=== PATIENT | female | born 1995 | race Caucasian/White ===

== ENCOUNTER 2018-12-24 07:38 | Emergency (ER) | payer OTHER ==
--- OUTSIDE RECORDS SUMMARY | 2018-12-24 07:41 | XMS REPORT | Continuity of Care Document ---
:1995 Author Organization [facility] Care Team Providers Name Role Phone MD Ijeoma, Suzanne Unavailable Unavailable Insurance Providers Payer name Policy type / Policy ID Covered libertarian ID Policy Eddy Coverage type AETNA - UPS - NAP - CHOICE (POS II) AETNA - UPS - NAP - CHOICE (POS II) AETNA - UPS - NAP - CHOICE (POS II) AETNA - UPS - NAP - CHOICE (POS II) [facility] - CHOICE PLUS AETNA - UPS - NAP - CHOICE (POS II) AETNA - UPS - NAP - CHOICE (POS II) AETNA - UPS - NAP - CHOICE (POS II) AETNA - UPS - NAP - CHOICE (POS II) AETNA - UPS - NAP - CHOICE (POS II) AETNA - UPS - NAP - CHOICE (POS II) AETNA - UPS - NAP - CHOICE (POS II) AETNA - UPS - NAP - CHOICE (POS II) AETNA - UPS - NAP - CHOICE (POS II) AETNA - UPS - NAP - CHOICE (POS II) AETNA - UPS - NAP - CHOICE (POS II) AETNA - UPS - NAP - CHOICE (POS II) AETNA - UPS - NAP - CHOICE (POS II) [facility] - CHOICE PLUS Encounters Encounter Performer Location Date Lab Report Suzanne Raphael MD [facility] Jun 27, 2014 [place] Allergies, Adverse Reactions, Alerts Type Substance Reaction Status Drug allergy ANTIFLAMATORY rash body Active Problems Problem Effective Dates Problem Status ENCOUNTER FOR REMOVAL OF SUTURES September 08, 2012 Inactive PHARYNGITIS Mar 30, 2013 Inactive SINUSITIS, ACUTE Mar 30, 2013 Inactive REACTIVE AIRWAY DISEASE Mar 30, 2013 Inactive VACCINE AGAINST INFLUENZA Apr 06, 2013 Inactive ROUTINE GENERAL MEDICAL EXAM@HEALTH CARE FACL May 04, 2013 Inactive ALLERGIC RHINITIS May 04, 2013 Active VAGINITIS Dec 12, 2013 Inactive ACUTE UPPER RESPIRATORY INFECTIONS OF OTHER MULTIPLE Dec 12, 2013 Inactive SITES SINUSITIS Jun 27, 2014 Active ANXIETY Jun 27, 2014 Active PANIC DISORDER Jun 27, 2014 Active Procedures Date Description Comments September 08, 2012 smoking status never smoker Mar 30, 2013 smoking status never smoker August 23, 2012 vaginal Pap smear results Normal Dec 12, 2013 smoking status Never smoker Jan 11, 2014 smoking status Former smoker Jun 27, 2014 smoking status Former smoker Medications Medication Instructions Start Date Status ZITHROMAX Z-PAOLO 250 MG TABS 2 today, then 1 daily for 4 Mar 30, 2013 Inactive days with food MEDROL (PAOLO) 4 MG TABS take per package instructions Mar 30, 2013 Inactive with food AVELOX 400 MG TABS 1 PO QD x 10 days Apr 06, 2013 Inactive ZUTRIPRO 60-4-5 MG/5ML SOLN 5 ml every 6 hr prn cough/ Apr 06, 2013 Inactive sinus REZIRA 60-5 MG/5ML SOLN 5 ml bid prn Apr 06, 2013 Inactive AZITHROMYCIN 250 MG TABS 2 tablets daily for 1 day, then Dec 12, 2013 Inactive 1 tablet daily for 4 days DIFLUCAN TAB 150MG 1 tablet daily Dec 12, 2013 Inactive SYMBICORT 160-4.5 MCG/ACT AERO 2 puffs inhaled bid - rinse Apr 06, 2013 Inactive mouth after use PROVENTIL HFA 108 (90 BASE) 2 puffs every 6 hours for 3 Mar 30, 2013 Inactive MCG/ACT AERS days, then as needed for shortness of breath AZITHROMYCIN 250 MG TABS 2 tablets daily for 1 day, then Jan 11, 2014 Inactive 1 tablet daily for 4 days BROMFED DM 30-2-10 MG/5ML SYRP 2 teaspoon three times a day as Jan 11, 2014 Inactive needed for cough AUGMENTIN 875-125 MG TABS 1 tablet twice daily for 10 Jun 27, 2014 Active days BROMFED DM 30-2-10 MG/5ML SYRP 1 teaspoon (5ml) three times a Jun 27, 2014 Active day as needed for cough BUSPIRONE HCL 10 MG TABS 1 tablet two times a day Jun 27, 2014 Active CLONAZEPAM 0.5 MG TABS 1 tablet every 8 hours as Jun 27, 2014 Active needed for severe anxiety Immunizations Vaccine Date Status hepatitis B vaccine #1 given 1993 completed hepatitis B vaccine #2 given 1993 completed hepatitis B vaccine #3 Mar 16, 1994 completed DPT immunization #1 September 21, 1994 completed DPT immunization #2 September 18, 1997 completed Hemophilus influenza B immunization #1 1993 completed Hemophilus influenza B immunization #2 Jan 12, 1994 completed Hemophilus influenza B immunization #3 Mar 16, 1994 completed Hemophilus influenza B immunization #4 September 21, 1994 completed oral polio vaccine (OPV) #1 1993 completed oral polio vaccine (OPV) #2 Jan 12, 1994 completed oral polio vaccine (OPV) #3 Mar 16, 1994 completed oral polio vaccine (OPV) #4 September 18, 1997 completed MMR (measles, mumps, rubella) virus immunization #1 September 21, 1994 completed MMR (measles, mumps, rubella) virus immunization #2 September 18, 1997 completed TB-PPD (tuberculin purified protein derivative), intradermal May 04, 2013 completed administration Vital Signs Date Description Test Result September 08, 2012 weight E&M - 3141-9 WEIGHT 107 lb September 08, 2012 height E&M - 8302-2 HEIGHT 60.25 in September 08, 2012 temperature E&M TEMPERATURE 97.8 deg f September 08, 2012 pulse rate E&M - 8867-4 PULSE RATE 68 /min September 08, 2012 blood pressure, systolic - 8480-6 BP SYSTOLIC 112 mm Hg September 08, 2012 blood pressure, diastolic - 8462-4 BP DIASTOLIC 62 mm Hg Mar 30, 2013 height E&M - 8302-2 HEIGHT 60 in Mar 30, 2013 weight E&M - 3141-9 WEIGHT 109 lb Mar 30, 2013 temperature E&M TEMPERATURE 97.8 deg f Mar 30, 2013 respiratory rate E&M - 9279-1 RESP RATE 18 /min Mar 30, 2013 pulse rate E&M - 8867-4 PULSE RATE 72 /min Mar 30, 2013 blood pressure, systolic - 8480-6 BP SYSTOLIC 134 mm Hg Mar 30, 2013 blood pressure, diastolic - 8462-4 BP DIASTOLIC 65 mm Hg Apr 06, 2013 weight E&M - 3141-9 WEIGHT 111 lb Apr 06, 2013 respiratory rate E&M - 9279-1 RESP RATE 18 /min Apr 06, 2013 pulse rate E&M - 8867-4 PULSE RATE 86 /min Apr 06, 2013 blood pressure, systolic - 8480-6 BP SYSTOLIC 120 mm Hg Apr 06, 2013 blood pressure, diastolic - 8462-4 BP DIASTOLIC 69 mm Hg Apr 06, 2013 temperature E&M TEMPERATURE 97.7 deg f May 04, 2013 weight E&M - 3141-9 WEIGHT 110 lb May 04, 2013 temperature E&M TEMPERATURE 97.8 deg f May 04, 2013 blood pressure, systolic - 8480-6 BP SYSTOLIC 126 mm Hg May 04, 2013 blood pressure, diastolic - 8462-4 BP DIASTOLIC 67 mm Hg May 04, 2013 pulse rate E&M - 8867-4 PULSE RATE 83 /min May 31, 2013 weight E&M - 3141-9 WEIGHT 112 lb May 31, 2013 temperature E&M TEMPERATURE 97.7 deg f May 31, 2013 blood pressure, systolic - 8480-6 BP SYSTOLIC 115 mm Hg May 31, 2013 blood pressure, diastolic - 8462-4 BP DIASTOLIC 55 mm Hg May 31, 2013 pulse rate E&M - 8867-4 PULSE RATE 77 /min Dec 12, 2013 weight E&M - 3141-9 WEIGHT 114 lb Dec 12, 2013 height E&M - 8302-2 HEIGHT 59 in Dec 12, 2013 blood pressure, systolic - 8480-6 BP SYSTOLIC 140 mm Hg Dec 12, 2013 blood pressure, diastolic - 8462-4 BP DIASTOLIC 66 mm Hg Dec 12, 2013 pulse rate, standing PULSE STAND 74 /min Jan 11, 2014 respiratory rate E&M - 9279-1 RESP RATE 12 /min Jan 11, 2014 weight E&M - 3141-9 WEIGHT 115 lb Jan 11, 2014 temperature E&M TEMPERATURE 98.0 deg f Jan 11, 2014 height E&M - 8302-2 HEIGHT 60 in Jan 11, 2014 blood pressure, systolic - 8480-6 BP SYSTOLIC 120 mm Hg Jan 11, 2014 blood pressure, diastolic - 8462-4 BP DIASTOLIC 75 mm Hg Jan 11, 2014 pulse rate E&M - 8867-4 PULSE RATE 66 /min Jun 27, 2014 height E&M - 8302-2 HEIGHT 60 in Jun 27, 2014 weight E&M - 3141-9 WEIGHT 119.31 lb Jun 27, 2014 temperature E&M TEMPERATURE 98.1 deg f Jun 27, 2014 pulse rate E&M - 8867-4 PULSE RATE 101 /min Jun 27, 2014 blood pressure, systolic - 8480-6 BP SYSTOLIC 136 mm Hg Jun 27, 2014 blood pressure, diastolic - 8462-4 BP DIASTOLIC 69 mm Hg Results Date Description Test Name Value Reference Interpretation Status Jun 27, hemoglobin, blood HGB 13.2 g/dL 12.0-16.0 2014Jun 27, hematocrit, blood HCT 39.9 % 36.0-48.0 2014Jun 27, platelet count PLATELETS 322 K/CMM 475-967 2174 /mm3 Jun 27, thyroid TSH 0.926 uIU/mL 0.360-3.740 2014 stimulating hormone, serum August 23, vaginal Pap smear PAP SMEAR Normal null 2012 results
--- OUTSIDE RECORDS SUMMARY | 2018-12-24 07:41 | XMS REPORT | Continuity of Care Document ---
:1995 Author Organization [facility] Care Team Providers Name Role Phone MD Ijeoma, Suzanne Unavailable Unavailable Insurance Providers Payer name Policy type / Policy ID Covered alliance party ID Policy Eddy Coverage type AETNA - [place] - NAP - CHOICE (POS II) AETNA - [place] - NAP - CHOICE (POS II) AETNA - UPS - NAP - CHOICE (POS II) AETNA - UPS - NAP - CHOICE (POS II) [facility] - CHOICE PLUS AETNA - UPS [...] UPS - NAP - CHOICE (POS II) [facility] - CHOICE PLUS Encounters Encounter Performer Location Date Office Visit Suzanne Raphael MD [facility] Jun [place] Allergies, Adverse Reactions, Alerts Type Substance Reaction [...] 2014Jun 27, platelet count PLATELETS 322 K/CMM 570-151 8915 /mm3 Jun 27, thyroid TSH 0.926 uIU/mL 0.360-3.740 2014 stimulating hormone, serum August 23, vaginal Pap smear PAP SMEAR Normal null 2012 results
--- OUTSIDE RECORDS SUMMARY | 2018-12-24 07:41 | XMS REPORT | Continuity of Care Document ---
:1995 Author Organization [facility] Care Team Providers Name Role Phone MD Ijeoma, Suzanne Unavailable Unavailable Insurance Providers Payer name Policy type / Policy ID Covered constitution party ID Policy Eddy Coverage type AETNA - UPS - NAP - CHOICE (POS II) AETNA - [place] - NAP - CHOICE (POS II) AETNA - UPS - NAP - CHOICE (POS II) AETNA - [place] - NAP - CHOICE (POS II) [facility] - CHOICE PLUS AETNA - UPS [...] UPS - NAP - CHOICE (POS II) [facility] - CHOICE PLUS Encounters Encounter Performer Location Date Office Visit Suzanne Raphael MD [facility] Jul [place] Allergies, Adverse Reactions, Alerts Type Substance Reaction [...] Jun 27, 2014 smoking status Former smoker Jul 26, 2014 smoking status Former smoker Medications Medication [...] twice daily for 10 Jun 27, 2014 Inactive days BROMFED DM 30-2-10 MG/5ML SYRP 1 teaspoon (5ml) three times a Jun 27, 2014 Inactive day as needed for cough CLONAZEPAM 0.5 MG TABS 1 tablet every 8 hours as Jun 27, 2014 Active needed for severe anxiety BUSPIRONE HCL 10 MG TABS 1/2 a tab daily Jun 27, 2014 Active PAXIL 10 MG TABS 1 tablet daily Jul 26, 2014 Active Immunizations Vaccine Date Status hepatitis B vaccine [...] - 8462-4 BP DIASTOLIC 69 mm Hg Jul 26, 2014 height E&M - 8302-2 HEIGHT 60 in Jul 26, 2014 weight E&M - 3141-9 WEIGHT 117.44 lb Jul 26, 2014 temperature E&M TEMPERATURE 98.2 deg f Jul 26, 2014 pulse rate E&M - 8867-4 PULSE RATE 77 /min Jul 26, 2014 blood pressure, systolic - 8480-6 BP SYSTOLIC 132 mm Hg Jul 26, 2014 blood pressure, diastolic - 8462-4 BP DIASTOLIC 86 mm Hg Results Date Description Test Name Value Reference Interpretation Status Jun 27, hemoglobin, blood HGB 13.2 g/dL 12.0-16.0 2014Jun 27, hematocrit, blood HCT 39.9 % 36.0-48.0 2014Jun 27, platelet count PLATELETS 322 K/CMM 481-151 2261 /mm3 Jun 27, thyroid TSH 0.926 uIU/mL 0.360-3.740 2014 stimulating hormone, serum August 23, vaginal Pap smear PAP SMEAR Normal null 2012 results
--- OUTSIDE RECORDS SUMMARY | 2018-12-24 07:41 | XMS REPORT | Continuity of Care Document ---
:1995 Author Organization [facility] Care Team Providers Name Role Phone [facility] Unavailable Unavailable Problems Problem Status Onset Classification Date Comments Source Date Reported SINUSITIS Inactive Condition 10/07/2014 Medical 5 Group ANXIETY Active Condition 10/07/2014 Medical 5 Group PANIC DISORDER Active Condition 10/07/2014 Medical 5 Group VAGINITIS Inactive Condition 10/07/2014 Medical 4 Group ACUTE UPPER Inactive Condition 10/07/2014 Medical RESPIRATORY 4 Group INFECTIONS OF OTHER MULTIPLE SITES ROUTINE GENERAL Inactive Condition 10/07/2014 Medical MEDICAL 4 Group [email or web address]@[email or web address] CARE FACL ALLERGIC Active Condition 10/07/2014 Medical RHINITIS 4 Group VACCINE AGAINST Inactive Condition 10/07/2014 Medical INFLUENZA 3 Group PHARYNGITIS Inactive Condition 10/07/2014 Medical 3 Group SINUSITIS, Inactive Condition 10/07/2014 Medical ACUTE 3 Group REACTIVE AIRWAY Inactive Condition 10/07/2014 Medical DISEASE 3 Group ENCOUNTER FOR Inactive Condition 10/07/2014 Medical REMOVAL OF 3 Group SUTURES Medications Medication Details Route Status Patient Ordering Order Source Instructions Provider Date LEXAPRO 5 MG one to 2 Active TABS tablets daily 015 Medical Group PAXIL 10 MG 1 tablet daily No TABS Longer 015 Medical Active Group AUGMENTIN 1 tablet twice No 875-125 MG TABS daily for 10 Longer 015 Medical days Active Group BROMFED DM 1 teaspoon No 30-2-10 MG/5ML (5ml) three Longer 015 Medical SYRP times a day as Active Group needed for cough BUSPIRONE HCL 1/2 a tab daily No 10 MG TABS Longer 015 Medical Active Group CLONAZEPAM 0.5 1 tablet every Active MH MG TABS 8 hours as 015 Medical needed for Group severe anxiety AZITHROMYCIN 2 tablets daily No MH 250 MG TABS for 1 day, then Longer 014 Medical 1 tablet daily Active Group for 4 days BROMFED DM 2 teaspoon No MH 30-2-10 MG/5ML three times a Longer 014 Medical SYRP day as needed Active Group for cough AZITHROMYCIN 2 tablets daily No MH 250 MG TABS for 1 day, then Longer 014 Medical 1 tablet daily Active Group for 4 days DIFLUCAN TAB 1 tablet daily No MH 150MG Longer 014 Medical Active Group AVELOX 400 MG 1 PO QD x 10 No MH TABS days Longer 013 Medical Active Group ZUTRIPRO 60-4-5 5 ml every 6 hr No MH MG/5ML SOLN prn cough/ Longer 013 Medical sinus Active Group REZIRA 60-5 5 ml bid prn No MH MG/5ML SOLN Longer 013 Medical Active Group SYMBICORT 2 puffs No MH 160-4.5 MCG/ACT inhaled bid - Longer 013 Medical AERO rinse mouth Active Group after use ZITHROMAX Z-PAOLO 2 today, then 1 No MH 250 MG TABS daily for 4 Longer 013 Medical days with food Active Group MEDROL (PAOLO) 4 take per No MH MG TABS package Longer 013 Medical instructions Active Group with food PROVENTIL HFA 2 puffs every 6 No MH 108 (90 BASE) hours for 3 Longer 013 Medical MCG/ACT AERS days, then as Active Group needed for shortness of breath MEDROL (PAOLO) 4 take per No MH MG TABS package Longer 013 Medical instructions Active Group with food Allergies, Adverse Reactions, Alerts Substance Category Reaction Severity Reaction Status Date Comments Source type Reported ANTIFLAMATORY Drug ANTIFLAMATOR allergy Y 3 Medical Group Immunizations Immunization Date Given Site Status Last Comments Source Updated TB-PPD (tuberculin 05/04/2013 completed Medical purified protein Group derivative), intradermal administration TB PPD (tuberculin 05/04/2013 completed Medical purified protein Group derivative), intradermal administration DPT immunization #2 09/18/1997 completed Medical Group oral polio vaccine 09/18/1997 completed Medical (OPV) #4 Group MMR (measles, 09/18/1997 completed Medical mumps, rubella) Group virus immunization #2 MMR virus 09/18/1997 completed Medical immunization #2 Group DPT immunization #1 09/21/1994 completed Medical Group Hemophilus 09/21/1994 completed Medical influenza B Group immunization #4 MMR (measles, 09/21/1994 completed Medical mumps, rubella) Group virus immunization #1 MMR virus 09/21/1994 completed Medical immunization #1 Group hepatitis B vaccine 03/16/1994 completed Medical #3 Group Hemophilus 03/16/1994 completed Medical influenza B Group immunization #3 oral polio vaccine 03/16/1994 completed Medical (OPV) #3 Group Hemophilus 01/12/1994 completed Medical influenza B Group immunization #2 oral polio vaccine 01/12/1994 completed Medical (OPV) #2 Group hepatitis B vaccine 1993 completed Medical #2 given Group Hemophilus 1993 completed Medical influenza B Group immunization #1 oral polio vaccine 1993 completed Medical (OPV) #1 Group hepatitis B vaccine 1993 completed Medical #2 Group hepatitis B vaccine 1993 completed Medical #1 given Group hepatitis B vaccine 1993 completed Medical #1 Group Results Order Name Results Value Reference Date Interpretation Comments Source Range Chemistry TSH 0.926 0.360 - 3.740 2014 Medical [facility] Hematology HGB 13.2 12.0 - 16.0 2014 Medical [facility] Hematology HCT 39.9 36.0 - 48.0 2014 Medical [facility] Hematology PLATELETS 322 133 - 450 K/CM 2014 Medical Group [employer] PAP SMEAR Normal 2012 Medical Group [employer] PAP SMEAR Normal 2012 Medical [facility] Pathology PAP SMEAR Normal 2012 Medical [facility] Pathology Reports No Data Provided for This Section Diagnostic Reports No Data Provided for This Section Consultation Notes No Data Provided for This Section Discharge Summaries No Data Provided for This Section History and Physicals No Data Provided for This Section Vital Signs Vital Sign Value Date Comments Source Height 60 10/07/2014 Medical [facility] Weight 121.50 10/07/2014 [facility] Temperature Oral (F) 98.5 F 10/07/2014 Medical Group Respitory Rate 16 10/07/2014 Medical Group Heart Rate 80 10/07/2014 [facility] Systolic (mm Hg) 122 10/07/2014 [facility] Diastolic (mm Hg) 82 10/07/2014 Medical Group Height 60 07/26/2014 [facility] Weight 117.44 07/26/2014 [facility] Temperature Oral (F) 98.2 F 07/26/2014 Medical Group Heart Rate 77 07/26/2014 [facility] Systolic (mm Hg) 132 07/26/2014 [facility] Diastolic (mm Hg) 86 07/26/2014 [facility] Height 60 06/27/2014 Medical Group Weight 119.31 06/27/2014 [facility] Temperature Oral (F) 98.1 F 06/27/2014 Medical Group Heart Rate 101 06/27/2014 [facility] Systolic (mm Hg) 136 06/27/2014 [facility] Diastolic (mm Hg) 69 06/27/2014 Medical Group Respitory Rate 12 01/11/2014 Medical Group Weight 115 01/11/2014 Medical Group Temperature Oral (F) 98.0 F 01/11/2014 Medical Group Height 60 01/11/2014 [facility] Systolic (mm Hg) 120 01/11/2014 [facility] Diastolic (mm Hg) 75 01/11/2014 Medical Group Heart Rate 66 01/11/2014 Medical Group Weight 114 12/12/2013 Medical Group Height 59 12/12/2013 [facility] Systolic (mm Hg) 140 12/12/2013 [facility] Diastolic (mm Hg) 66 12/12/2013 Medical Group Heart Rate 74 12/12/2013 Medical Group Weight 112 05/31/2013 Medical Group Temperature Oral (F) 97.7 F 05/31/2013 [facility] Systolic (mm Hg) 115 05/31/2013 Medical Group Diastolic (mm Hg) 55 05/31/2013 Medical Group Heart Rate 77 05/31/2013 Medical Group Weight 110 05/04/2013 Medical Group Temperature Oral (F) 97.8 F 05/04/2013 Medical Group Systolic (mm Hg) 126 05/04/2013 Medical Group Diastolic (mm Hg) 67 05/04/2013 Medical Group Heart Rate 83 05/04/2013 Medical Group Weight 111 04/06/2013 Medical Group Respitory Rate 18 04/06/2013 Medical Group Heart Rate 86 04/06/2013 Medical Group Systolic (mm Hg) 120 04/06/2013 Medical Group Diastolic (mm Hg) 69 04/06/2013 Medical Group Temperature Oral (F) 97.7 F 04/06/2013 Medical Group Height 60 03/30/2013 Medical Group Weight 109 03/30/2013 Medical Group Temperature Oral (F) 97.8 F 03/30/2013 Medical Group Respitory Rate 18 03/30/2013 Medical Group Heart Rate 72 03/30/2013 Medical Group Systolic (mm Hg) 134 03/30/2013 Medical Group Diastolic (mm Hg) 65 03/30/2013 Medical Group Weight 107 09/08/2012 Medical Group Height 60.25 09/08/2012 Medical Group Temperature Oral (F) 97.8 F 09/08/2012 Medical Group Heart Rate 68 09/08/2012 Medical Group Systolic (mm Hg) 112 09/08/2012 Medical Group Diastolic (mm Hg) 62 09/08/2012 Medical Group Encounters Location Location Encounter Encounter Reason Attending ADM DC Status Source Details Type Number For Provider Date Date Visit [facility] [id number] [facility] 12/12 12/12 [facility] [place] Visit 0 Medical Medical MEDICAL TRANSCRIPTION SUPERVISOR Group Group [facility] Office [id number] [facility] 01/11 01/11 MH [place] Visit 0 Medical Medical MEDICAL TRANSCRIPTION SUPERVISOR Group Group [facility] Office [id number] [facility] 06/27 06/27 MH [place] Visit 0 [facility] Medical MD [place] [facility] Lab [facility] [id number] [facility] 06/27 [facility] [place] 0 [facility] Medical MD [place] [facility] Office [id number] [facility] 07/26 07/26 MH [place] Visit 0 [facility] Medical MD [place] [facility] Office [id number] [place] 10/07 10/07 [facility] [place] Visit 0 [facility] MD [facility] [place] Procedures Procedure Code Date Perfomer Comments Source vaginal Pap smear 48398 08/23/2012 Normal MH Medical results Group Assessment and Plan No Data Provided for This Section Plan of Care No Data Provided for This Section Social History No Data Provided for This Section Family History No Data Provided for This Section Advance Directives No Data Provided for This Section Functional Status No Data Provided for This Section
--- OUTSIDE RECORDS SUMMARY | 2018-12-24 07:41 | XMS REPORT | Continuity of Care Document ---
:1995 Author Organization [facility] Care Team Providers Name Role Phone ABDIRAHMAN John LaTanya Unavailable Unavailable Insurance Providers Payer name Policy type / Policy ID Covered republican ID Policy Eddy Coverage type AETNA - [place] - NAP - CHOICE (POS II) AETNA - [place] - NAP - CHOICE (POS II) AETNA - [place] - NAP - CHOICE (POS II) AETNA - [place] - NAP - CHOICE (POS II) [facility] - CHOICE PLUS AETNA - UPS - NAP - CHOICE (POS II) AETNA - UPS - NAP - CHOICE (POS II) AETNA - [place] - NAP - CHOICE (POS II) AETNA - [place] - NAP - CHOICE (POS II) AETNA - UPS - NAP - CHOICE (POS II) AETNA - [place] - NAP - CHOICE (POS II) Encounters Encounter Performer Location Date Office Visit Ravi John APRN [facility] Dec 12, 2013 [place] Allergies, Adverse Reactions, Alerts Type Substance Reaction Status Drug allergy ANTIFLAMATORY rash body Active Problems Problem Effective Dates Problem Status ENCOUNTER FOR REMOVAL OF SUTURES September 08, 2012 Inactive PHARYNGITIS Mar 30, 2013 Inactive SINUSITIS, ACUTE Mar 30, 2013 Active REACTIVE AIRWAY DISEASE Mar 30, 2013 Active VACCINE AGAINST INFLUENZA Apr 06, 2013 Active ROUTINE GENERAL MEDICAL EXAM@HEALTH CARE FACL May 04, 2013 Active ALLERGIC RHINITIS May 04, 2013 Active VAGINITIS Dec 12, 2013 Active ACUTE UPPER RESPIRATORY INFECTIONS OF OTHER MULTIPLE Dec 12, 2013 Active SITES Procedures Date Description Comments September 08, 2012 smoking status never smoker Mar 30, 2013 smoking status never smoker August 23, 2012 vaginal Pap smear results Normal Dec 12, 2013 smoking status Never smoker Medications Medication Instructions Start Date Status ZITHROMAX Z-PAOLO 250 MG TABS 2 today, then 1 daily for 4 Mar 30, 2013 Inactive days with food MEDROL (PAOLO) 4 MG TABS take per package instructions Mar 30, 2013 Inactive with food SYMBICORT 160-4.5 MCG/ACT AERO 2 puffs inhaled bid - rinse Apr 06, 2013 Active mouth after use AVELOX 400 MG TABS 1 PO QD x 10 days Apr 06, 2013 Inactive ZUTRIPRO 60-4-5 MG/5ML SOLN 5 ml every 6 hr prn cough/ Apr 06, 2013 Inactive sinus REZIRA 60-5 MG/5ML SOLN 5 ml bid prn Apr 06, 2013 Inactive AZITHROMYCIN 250 MG TABS 2 tablets daily for 1 day, then Dec 12, 2013 Active 1 tablet daily for 4 days DIFLUCAN TAB 150MG 1 tablet daily Dec 12, 2013 Active PROVENTIL HFA 108 (90 BASE) 2 puffs every 6 hours for 3 Mar 30, 2013 Active MCG/ACT AERS days, then as needed for shortness of breath Immunizations Vaccine Date Status hepatitis B vaccine #1 1993 completed hepatitis B vaccine #2 1993 completed hepatitis B vaccine #3 Mar [...] (OPV) #4 September 18, 1997 completed MMR virus immunization #1 September 21, 1994 completed MMR virus immunization #2 September 18, 1997 completed TB PPD (tuberculin purified protein derivative), intradermal May 04, 2013 completed administration Vital Signs Date Description Test Result September 08, 2012 weight E&M WEIGHT 107 lb September 08, 2012 height E&M HEIGHT 60.25 in September 08, 2012 temperature E&M TEMPERATURE 97.8 deg f September 08, 2012 pulse rate E&M PULSE RATE 68 /min September 08, 2012 blood pressure, systolic BP SYSTOLIC 112 mm Hg September 08, 2012 blood pressure, diastolic BP DIASTOLIC 62 mm Hg Mar 30, 2013 height E&M HEIGHT 60 in Mar 30, 2013 weight E&M WEIGHT 109 lb Mar 30, 2013 temperature E&M TEMPERATURE 97.8 deg f Mar 30, 2013 respiratory rate E&M RESP RATE 18 /min Mar 30, 2013 pulse rate E&M PULSE RATE 72 /min Mar 30, 2013 blood pressure, systolic BP SYSTOLIC 134 mm Hg Mar 30, 2013 blood pressure, diastolic BP DIASTOLIC 65 mm Hg Apr 06, 2013 weight E&M WEIGHT 111 lb Apr 06, 2013 respiratory rate E&M RESP RATE 18 /min Apr 06, 2013 pulse rate E&M PULSE RATE 86 /min Apr 06, 2013 blood pressure, systolic BP SYSTOLIC 120 mm Hg Apr 06, 2013 blood pressure, diastolic BP DIASTOLIC 69 mm Hg Apr 06, 2013 temperature E&M TEMPERATURE 97.7 deg f May 04, 2013 weight E&M WEIGHT 110 lb May 04, 2013 temperature E&M TEMPERATURE 97.8 deg f May 04, 2013 blood pressure, systolic BP SYSTOLIC 126 mm Hg May 04, 2013 blood pressure, diastolic BP DIASTOLIC 67 mm Hg May 04, 2013 pulse rate E&M PULSE RATE 83 /min May 31, 2013 weight E&M WEIGHT 112 lb May 31, 2013 temperature E&M TEMPERATURE 97.7 deg f May 31, 2013 blood pressure, systolic BP SYSTOLIC 115 mm Hg May 31, 2013 blood pressure, diastolic BP DIASTOLIC 55 mm Hg May 31, 2013 pulse rate E&M PULSE RATE 77 /min Dec 12, 2013 weight E&M WEIGHT 114 lb Dec 12, 2013 height E&M HEIGHT 59 in Dec 12, 2013 blood pressure, systolic BP SYSTOLIC 140 mm Hg Dec 12, 2013 blood pressure, diastolic BP DIASTOLIC 66 mm Hg Dec 12, 2013 pulse rate, standing PULSE STAND 74 /min Results Date Description Test Name Value Reference Interpretation Status August 23, 2012 vaginal Pap smear PAP SMEAR Normal null results
--- OUTSIDE RECORDS SUMMARY | 2018-12-24 07:41 | XMS REPORT | Continuity of Care Document ---
:1995 Author Organization [facility] Care Team Providers Name Role Phone ABDIRAHMAN John LaTanya Unavailable Unavailable Insurance Providers Payer name Policy type / Policy ID Covered green party ID Policy Eddy Coverage type AETNA - [place] - NAP - CHOICE (POS II) AETNA - [place] - NAP - CHOICE (POS II) AETNA - [place] - NAP - CHOICE (POS II) AETNA - [place] - NAP - CHOICE (POS II) [facility] - CHOICE PLUS AETNA - UPS [...] Location Date Office Visit Ravi John APRN [facility] Jan 11, 2014 [place] Allergies, Adverse Reactions, Alerts Type Substance Reaction [...] Jan 11, 2014 smoking status Former smoker Medications Medication [...] for 1 day, then Jan 11, 2014 Active 1 tablet daily for 4 days BROMFED DM 30-2-10 MG/5ML SYRP 2 teaspoon three times a day as Jan 11, 2014 Active needed for cough Immunizations Vaccine Date Status hepatitis B vaccine [...] Description Test Result September 08, 2012 weight Estevan - 3141-9 WEIGHT 107 lb September 08, [...] HEIGHT 60 in Mar 30, 2013 weight Estevan - 3141-9 WEIGHT 109 lb Mar 30, [...] 65 mm Hg Apr 06, 2013 weight Marylou&Christiane - 3141-9 WEIGHT 111 lb Apr 06, [...] 97.7 deg f May 04, 2013 weight Marylou&Christiane - 3141-9 WEIGHT 110 lb May 04, 2013 temperature E&M TEMPERATURE 97.8 deg f May 04, 2013 blood pressure, systolic - 8480-6 BP SYSTOLIC 126 mm Hg May 04, 2013 blood pressure, diastolic - 8462-4 BP DIASTOLIC 67 mm Hg May 04, 2013 pulse rate E&M - 8867-4 PULSE RATE 83 /min May 31, 2013 weight Marylou&Christiane - 3141-9 WEIGHT 112 lb May 31, [...] E&M - 8867-4 PULSE RATE 66 /min Results Date Description Test Name Value Reference Interpretation Status August 23, 2012 vaginal Pap smear PAP SMEAR Normal null results
--- OUTSIDE RECORDS SUMMARY | 2018-12-24 07:42 | XMS REPORT ---
:1995 Author Organization [facility] Address [address] [place] [address] Care Team Providers Name Role Phone Unavailable Unavailable Unavailable Payers Payer Name Policy Type Policy Number Effective Date Expiration Date Problems This patient has no known problems. Allergies, Adverse Reactions, Alerts Allergy Name Allergy Status Severity Reaction(s) Onset Inactive Treating Comments Type Date Date Clinician No Known DA Active U 2019-0 Allergies 7-08 00:00: 00 No Known DA Active U 2018-0 Intolerances 6-15 00:00: 00 Medications This patient has no known medications. Results Test Description Test Time Test Comments Text Results Atomic Results Result Comments PERITONEUM,BIOPSY 2018-11-06 RUN DATE: 12:17:00 11/06/18 [facility] PAGE 1 RUN TIME: 1422 Specimen Inquiry RUN USER: INTERFACE PATIENT: DREA MATHIAS [facility] #: [id number] LOC: [place] U #: [id number] AGE/SX: 23/F ROOM: RE11/02/18REG DR: Campbell Allen MD : 93 BED: DIS: STATUS: DEP [facility] TLOC: SPEC #: [id number] RECD: 11/03/18 STATUS: ELIO AUGUSTINE # : [id number] LEE: 11/02/18- SUBM DR: Campbell Allen MD ENTERED: 11/03/18 SP TYPE: PERITBX OTHR DR: ORDERED: LEVEL IV CODES: [id number] - PERITONEUM, NOS PROCEDURES: LEVEL IV (Incomplete) TISSUES: PERITONEUM, NOS - PERITONEUM X6 CLINICAL HISTORY 23 year old, endometriosis (kr) FINAL DIAGNOSIS Presacral nerve, excision : - peripheral nerve with surrounding fibroadipose tissue Endometrium, curettage: - benign inactive endometrium with placental site nodule - endocervical mucosa, no significant pathologic alteration Left uterosacral ligament / posterior culdesac / perirectal peritoneum with endometriosis, excision: - endometriosis Mid posterior culdesac / perirectal peritoneum with pocket, excision: - fibroadipose tissue with focal fibrosis Right uterosacral ligament / posterior culdesac / perirectal peritoneum, excision: - peritoneal tissue with focal fibrosis Bilateral fallopian tubes with rings, salpingectomy: - previously ligated fallopian tubes with small paratubal cysts Tissue code 1 CPT code(s): 02590, 58973, 43788 x4 [facility] 11/06/18 CONTINUED ON NEXT PAGE RUN DATE: 11/06/18 [facility] PAGE 2 RUN TIME: 1422 Specimen Inquiry RUN USER: INTERFACE SPEC #: [id number] PATIENT: DREA MATHIAS #[id number] (Continued) GROSS DESCRIPTION ANATOMIC SOURCE OF TISSUE (per Requisition): 1. Presacral nerve 2. Endo curettings 3. Left uterosacral ligament, posterior culdesac, perirectal peritoneum 4. Mid posterior culdesac, perirectal peritoneum with pocket 5. Right uterosacral ligament, posterior culdesac, perirectal peritoneum 6. Bilateral fallopian tubes with rings Each specimen is labeled with the patient's name and medical record number. Specimen #1 is designated "presacral nerve" and consists of a 1.0 x 0.8 x 0.2 cm torre-yellow, cauterized fibrofatty firm tissue, submitted in toto labeled A1. Specimen #2 is designated "endo curettings" and consists of a 2.5 x 1.5 x 0.3 cm aggregate of multiple torre-pink soft tissues admixed with blood- tinged mucoid material and clotted blood, submitted in toto labeled B1. Specimen #3 is designated "left uterosacral ligament / posterior culdesac / perirectal peritoneum with endometriosis" and consists of a 0.6 x 0.5 x 0.2 cm torre-yellow, cauterized, fibrofatty firm tissue, bisected, submitted in toto labeled C1. Specimen #4 is designated "mid posterior culdesac / perirectal peritoneum with pocket" and consists of a 0.8 x 0.6 x 0.2 cm torre-yellow, cauterized fibrofatty, firm tissue, bisected, submitted in toto labeled D1. Specimen #5 is designated "right uterosacral ligament / posterior culdesac / perirectal peritoneum, rule out endometriosis" and consists of a 1.5 x 0.8 x 0.2 cm torre-yellow, cauterized, fibrofatty, soft tissue, submitted in toto labeled E1. Specimen #6 is designated "bilateral fallopian tubes with rings" and consists of previously ligated fimbriated fallopian tubes, 4.5 and 5.5 cm in length. The serosal surfaces are pink-purple and hyperemic with bilateral white, synthetic sterilization rings, 0.6 cm. The lumens are pinpoint. Financial Recording Clerk sections are submitted labeled F1 - short segment and F2 - long segment. joe 11/03/18 @ 1200 Signed Feli Jerome MD 11/06/18 1217 END OF REPORT RAPID PLASMA REAGIN 2018-10-31 10:05:00 Test Item Value Reference Range Comments RAPID PLASMA REAGIN (test code=RPR) NON-REACTIVE NON-REACT IS CONSENT FORM SIGNED FOR HIV TESTING? YAG HEPATITIS B [id number] 10:05: 00 Test Item Value Reference Range Comments AG HEPATITIS B SURFACE (test code=HBSAG) NON REACTIVE INDEX NonReactive IS CONSENT FORM SIGNED FOR HIV TESTING? AZAEL HEPATITIS C [id number] 10:05: 00 Test Item Value Reference Range Comments AB HEPATITIS C (test code=HCVAB) NON REACTIVE INDEX NON REACT. SIGNAL TO CUTOFF (test code=CUTOFF) TEST NOT PERFORMED <0.80 IS CONSENT FORM SIGNED FOR HIV TESTING? AZAEL HIV 1 10:05:00 Test Item Value Reference Range Comments AB HIV 1 2 (test code=UIN28TM) NONREACTIVE INDEX NONREACTIVE IS CONSENT FORM SIGNED FOR HIV TESTING? YAG HEPATITIS B [id number] 10:04: 00 Test Item Value Reference Range Comments AG HEPATITIS B SURFACE (test code=HBSAG) NON REACTIVE INDEX NonReactive IS CONSENT FORM SIGNED FOR HIV TESTING? AZAEL HEPATITIS [id number] 10:04:00 Test Item Value Reference Range Comments AB HEPATITIS C (test code=HCVAB) NON REACTIVE INDEX NON REACT. IS CONSENT FORM SIGNED FOR HIV TESTING? AZAEL HIV 1 10:04:00 Test Item Value Reference Range Comments AB HIV 1 2 (test code=SJL94IG) NONREACTIVE INDEX NONREACTIVE IS CONSENT FORM SIGNED FOR HIV TESTING? YRAPID PLASMA [id number] 09:32:00 Test Item Value Reference Range Comments RAPID PLASMA REAGIN (test code=RPR) NON-REACTIVE NON-REACT IS CONSENT FORM SIGNED FOR HIV TESTING? YAG HEPATITIS B [id number] 09:32: 00 Test Item Value Reference Range Comments AG HEPATITIS B SURFACE (test code=HBSAG) NON REACTIVE INDEX NonReactive IS CONSENT FORM SIGNED FOR HIV TESTING? AZAEL HEPATITIS C [id number] 09:32: 00 Test Item Value Reference Range Comments AB HEPATITIS C (test code=HCVAB) NON REACTIVE INDEX NON REACT. SIGNAL TO CUTOFF (test code=CUTOFF) TEST NOT PERFORMED <0.80 IS CONSENT FORM SIGNED FOR HIV TESTING? YAB HIV 1 09:32:00 Test Item Value Reference Range Comments AB HIV 1 2 (test code=BAC63UD) NONREACTIVE IS CONSENT FORM SIGNED FOR HIV TESTING? YAG HEPATITIS B [id number] 07:31: 00 Test Item Value Reference Range Comments AG HEPATITIS B SURFACE (test code=HBSAG) NON REACTIVE INDEX NonReactive IS CONSENT FORM SIGNED FOR HIV TESTING? YAB HEPATITIS [id number] 07:31:00 Test Item Value Reference Range Comments AB HEPATITIS C (test code=HCVAB) NON REACTIVE INDEX NON REACT. IS CONSENT FORM SIGNED FOR HIV TESTING? YAB HIV 1 07:31:00 Test Item Value Reference Range Comments AB HIV 1 2 (test code=VGD92FB) INDEX NONREACTIVE IS CONSENT FORM SIGNED FOR HIV TESTING? YRAPID PLASMA [id number] 07:31:00 Test Item Value Reference Range Comments RAPID PLASMA REAGIN (test code=RPR) NON-REACTIVE NON-REACT IS CONSENT FORM SIGNED FOR HIV TESTING? YAG HEPATITIS B [id number] 07:31: 00 Test Item Value Reference Range Comments AG HEPATITIS B SURFACE (test code=HBSAG) NON REACTIVE INDEX NonReactive IS CONSENT FORM SIGNED FOR HIV TESTING? YAB HEPATITIS C [id number] 07:31: 00 Test Item Value Reference Range Comments AB HEPATITIS C (test code=HCVAB) INDEX NON REACT. SIGNAL TO CUTOFF (test code=CUTOFF) TEST NOT PERFORMED <0.80 IS CONSENT FORM SIGNED FOR HIV TESTING? YAB HIV 1 07:31:00 Test Item Value Reference Range Comments AB HIV 1 2 (test code=EKD47XG) NONREACTIVE IS CONSENT FORM SIGNED FOR HIV TESTING? YRAPID PLASMA [id number] 04:51:00 Test Item Value Reference Range Comments RAPID PLASMA REAGIN (test code=RPR) NON-REACTIVE NON-REACT IS CONSENT FORM SIGNED FOR HIV TESTING? YAG HEPATITIS B [id number] 04:51: 00 Test Item Value Reference Range Comments AG HEPATITIS B SURFACE (test code=HBSAG) NONREACTIVE IS CONSENT FORM SIGNED FOR HIV TESTING? YAB HEPATITIS C [id number] 04:51: 00 Test Item Value Reference Range Comments AB HEPATITIS C (test code=HCVAB) NONREACTIVE SIGNAL TO CUTOFF (test code=CUTOFF) TEST NOT PERFORMED <0.80 IS CONSENT FORM SIGNED FOR HIV TESTING? YAB HIV 1 04:51:00 Test Item Value Reference Range Comments AB HIV 1 2 (test code=VYI30HU) NONREACTIVE IS CONSENT FORM SIGNED FOR HIV TESTING? YRAPID PLASMA [id number] 01:51:00 Test Item Value Reference Range Comments RAPID PLASMA REAGIN (test code=RPR) NON-REACTIVE NON-REACT IS CONSENT FORM SIGNED FOR HIV TESTING? YAG HEPATITIS B [id number] 01:51: 00 Test Item Value Reference Range Comments AG HEPATITIS B SURFACE (test code=HBSAG) NONREACTIVE IS CONSENT FORM SIGNED FOR HIV TESTING? YAB HEPATITIS C [id number] 01:51: 00 Test Item Value Reference Range Comments AB HEPATITIS C (test code=HCVAB) NONREACTIVE SIGNAL TO CUTOFF (test code=CUTOFF) <0.80 IS CONSENT FORM SIGNED FOR HIV TESTING? YAB HIV 1 01:51:00 Test Item Value Reference Range Comments AB HIV 1 2 (test code=MTG03AM) NONREACTIVE IS CONSENT FORM SIGNED FOR HIV TESTING? YCHEMISTRY 7 [id number] 19:02:00 Test Item Value Reference Range Comments SODIUM (test code=NA) 141 mEq/L 135-145 POTASSIUM (test code=K) 4.3 mEq/L 3.5-5.0 CHLORIDE (test code=CL) 105 mEq/L 100-115 CARBON DIOXIDE (test code=CO2) 25 mEq/L 22-31 ANION GAP (test code=GAP) 15.30 10-20 GLUCOSE (test code=GLU) 90 mg/dL 65-110 BLOOD UREA NITROGEN (test code=BUN) 5 mg/dL 7-18 GLOMERULAR FILTRATION RATE (test code=GFR) 150 ml/min >60 CREATININE (test code=CREAT) 0.5 mg/dL 0.5-1.0 CALCIUM (test code=CA) 8.5 mg/dL 8.4-10.2 LIVER [id number] 19:02:00 Test Item Value Reference Range Comments TOTAL PROTEIN (test code=PROT) 6.7 gm/dL 6.3-8.2 ALBUMIN (test code=ALB) 3.4 gm/dL 3.4-4.8 BILIRUBIN TOTAL (test code=BILT) 0.2 mg/dL 0.2-1.0 BILIRUBIN DIRECT (test code=BILD) <0.1 mg/dL <0.2 SGOT/AST (test code=AST) 23 units/L 15-37 SGPT/ALT (test code=ALT) 36 units/L 12-78 ALKALINE PHOSPHATASE TOTAL (test code=ALKP) 41 units/L 46-116 HCG SERUM [id number] 19:02:00 Test Item Value Reference Range Comments HCG SERUM QUAL (test code=HCGQL) NEGATIVE CHEMISTRY 7 [id number] 18:43:00 Test Item Value Reference Range Comments SODIUM (test code=NA) 141 mEq/L 135-145 POTASSIUM (test code=K) 4.3 mEq/L 3.5-5.0 CHLORIDE (test code=CL) 105 mEq/L 100-115 CARBON DIOXIDE (test code=CO2) 25 mEq/L 22-31 ANION GAP (test code=GAP) 15.30 10-20 GLUCOSE (test code=GLU) 90 mg/dL 65-110 BLOOD UREA NITROGEN (test code=BUN) 5 mg/dL 7-18 GLOMERULAR FILTRATION RATE (test code=GFR) 150 ml/min >60 CREATININE (test code=CREAT) 0.5 mg/dL 0.5-1.0 CALCIUM (test code=CA) 8.5 mg/dL 8.4-10.2 LIVER [id number] 18:43:00 Test Item Value Reference Range Comments TOTAL PROTEIN (test code=PROT) 6.7 gm/dL 6.3-8.2 ALBUMIN (test code=ALB) 3.4 gm/dL 3.4-4.8 BILIRUBIN TOTAL (test code=BILT) 0.2 mg/dL 0.2-1.0 BILIRUBIN DIRECT (test code=BILD) <0.1 mg/dL <0.2 SGOT/AST (test code=AST) 23 units/L 15-37 SGPT/ALT (test code=ALT) 36 units/L 12-78 ALKALINE PHOSPHATASE TOTAL (test code=ALKP) 41 units/L 46-116 HCG SERUM [id number] 18:43:00 Test Item Value Reference Range Comments HCG SERUM QUAL (test code=HCGQL) PROTHROMBIN [id number] 18:41:00 Test Item Value Reference Range Comments PROTHROMBIN TIME PATIENT (test code=PTP) 11.0 secs 10.4-12.4 THROMBOPLASTIN TIME [id number] 18:41:00 Test Item Value Reference Range Comments THROMBOPLASTIN TIME PARTIAL (test code=PTT) 27.5 secs 22-38 CBC W/AUTO [id number] 18:01:00 Test Item Value Reference Range Comments WHITE BLOOD CELL (test code=WBC) 6.7 K/mm3 6.6-12.1 RED BLOOD CELL (test code=RBC) 4.27 M/mm3 3.45-5.01 HEMOGLOBIN (test code=HGB) 13.1 g/dL 10.7-13.9 HEMATOCRIT (test code=HCT) 40.6 % 32.1-42.1 MEAN CELL VOLUME (test code=MCV) 95 fL 84.1-94.8 MEAN CELL HGB (test code=MCH) 30.7 pg 27-35 MEAN CELL HGB CONCETRATION (test code=MCHC) 32.3 gm/dL 32.2-34.1 RED CELL DISTRIBUTION WIDTH (test code=RDW) 11.9 % 12.4-16.5 PLATELET COUNT (test code=PLT) 275 K/mm3 133-385 IMMATURE PLATELET FRACTION (test code=IPF) 0.0 % 0.0-10.8 MEAN PLATELET VOLUME (test code=MPV) 10.7 fl 9.1-12.7 NEUTROPHIL % (test code=NT%) 47.8 % 56.5-79.4 LYMPHOCYTE % (test code=LY%) 41.1 % 14.3-34.3 MONOCYTE % (test code=MO%) 9.2 % 5.1-10.4 EOSINOPHIL % (test code=EO%) 1.2 % 0.1-3.0 BASOPHIL % (test code=BA%) 0.4 % 0.1-1.0 NEUTROPHIL # (test code=NT#) 3.2 K/mm3 LYMPHOCYTE # (test code=LY#) 2.8 K/mm3 MONOCYTE # (test code=MO#) 0.6 K/mm3 EOSINOPHIL # (test code=EO#) 0.08 K/mm3 BASOPHIL # (test code=BA#) 0.0 K/mm3 RBC MORPHOLOGY REQUIRED (test code=RBCM) NORMAL NORMAL PLATELET MORPHOLOGY REQUIRED (test code=PLTMR) NORMAL NORMAL URINALYSIS [id number] 15:43:00 Test Item Value Reference Range Comments UA COLOR (test code=COLU) STRAW YELLOW UA APPEARANCE (test code=APPU) CLEAR CLEAR UA GLUCOSE DIPSTICK (test code=DGLUU) NEGATIVE NEG UA BILIRUBIN DIPSTICK (test code=BILU) NEGATIVE NEG UA KETONE DIPSTICK (test code=KETU) NEGATIVE NEG UA SPECIFIC GRAVITY (test code=SGU) 1.006 1.001-1.035 UA BLOOD DIPSTICK (test code=HAYLEY) NEG NEG UA PH DIPSTICK (test code=DWIGHT) 8.0 5-9 UA PROTEIN DIPSTICK (test code=PROU) NEGATIVE NEG UA UROBILINIOGEN DIPSTICK (test code=URO) NEGATIVE mg/dL NEG UA NITRITE DIPSTICK (test code=ARIAS) NEG NEG UA LEUKOCYTE ESTERASE DIPSTICK (test NEG NEG code=LEUU) UA WBC (test code=WBCU) 0-2 #/hpf NONE SEEN UA RBC (test code=RBCU) 0-2 #/hpf NONE SEEN UA EPITHELIAL CELLS (test code=EPIU) RARE #/HPF RARE-FEW UA MUCUS (test code=MUCU) RARE NONE SEEN URINE SAMPLE: CLEAN CATCH
--- OUTSIDE RECORDS SUMMARY | 2018-12-24 07:42 | XMS REPORT | Summary of Care ---
:1995 Author Organization [facility] Address [address] [place] [address] Care Team Providers Name Role Phone ThiernolidyaTony Primary Care Provider Reason for Visit Reason Comments Lab Results +STREP Encounter Details Date Type Department Care Team Description 11/23/2018 Telephone [facility] [employer] Family Fariba Poe, Lab Results (+ STREP) [facility] [address] [facility] [address] [place] [address] [address] [address] [place] [address] [phone] Allergies No Known Allergiesdocumented as of this encounter (statuses as of 11/23/2018) Medications Medication Sig Dispensed Refills Start Date End Date Status acetaminophen-codeine Take 1 tablet by 20 tablet 0 06/12/2017 Active (TYLENOL-CODEINE #3) mouth every 6 300-30 mg tablet (six) hours as needed for Pain (scale 4-6) (for cough). amoxicillin 875 mg Take 1 tablet by 20 tablet 0 11/23/2018 12/03/2018 Active tabletIndications: mouth 2 (two) Strep pharyngitis times daily for 10 days. documented as of this encounter (statuses as of 11/23/2018) Active Problems Problem Noted Date 33 weeks gestation of 09/08/2015 Premature labor 09/08/2015 30 weeks gestation of 08/13/2015 Premature uterine contractions causing threatened premature labor, 08/13/2015 antepartum Premature uterine contractions causing threatened premature labor 08/13/2015 documented as of this encounter (statuses as of 11/23/2018) Social History Tobacco Use Types Packs/Day Years Used Date Former Smoker Smokeless Tobacco: Never Used Sex Assigned at Date Recorded Not on file Job Start Date Occupation Industry Not on file Not on file Not on file Travel History Travel Start Travel End No recent travel history available. documented as of this encounter Last Filed Vital Signs Not on filedocumented in this encounter Plan of Treatment Health Maintenance Due Date Last Done Comments VARICELLA VACCINES (1 of 2 - 13+ 2006 2-dose series) HPV VACCINES (1 - Female 3-dose 2008 series) DTaP,Tdap,and Td Vaccines (1 - 2012 Tdap) PAP SMEAR 2014 INFLUENZA VACCINE 12/24/2018 PNEUMOCOCCAL 0-64 YEARS COMBINED Aged Out No longer eligible based on SERIES patient's age to complete this topic documented as of this encounter Results Not on filedocumented in this encounter Visit Diagnoses Diagnosis Strep pharyngitis - Primary Streptococcal sore throat documented in this encounter Insurance Payer Benefit Plan / Subscriber ID Effective Phone Address Type Group [facility] x[facility]-[address] Medicaid HEALTH CHOICE - [place] [id number] [facility] MEDICAID [place], [place] [id number] AETNA AETNA HMO [id number] 2016- HMO ent documented as of this encounter
--- OUTSIDE RECORDS SUMMARY | 2018-12-24 07:42 | XMS REPORT | Continuity of Care Document ---
:1995 Author Organization [facility] Care Team Providers Name Role Phone MD Cyn, Tony Unavailable Unavailable Insurance Providers Payer name Policy type / Policy ID Covered democrat ID Policy Eddy Coverage type AETNA - UPS - NAP - CHOICE (POS II) AETNA - UPS - NAP - CHOICE (POS II) AETNA - UPS - NAP - CHOICE (POS II) AETNA - UPS - NAP - CHOICE (POS II) [employer] - CHOICE PLUS AETNA - UPS [...] UPS - NAP - CHOICE (POS II) [facility] - CHOICE PLUS AETNA - UPS - NAP - CHOICE (POS II) AETNA - UPS - NAP - CHOICE (POS II) Encounters Encounter Performer Location Date Office Visit Tony Addison MD [facility] [place] Oct 07, 2014 Allergies, Adverse Reactions, Alerts Type Substance Reaction [...] 2013 Inactive SITES SINUSITIS Jun 27, 2014 Inactive ANXIETY Jun 27, 2014 Active PANIC DISORDER [...] Jul 26, 2014 smoking status Former smoker Oct 07, 2014 smoking status Never smoker Medications Medication Instructions [...] 1/2 a tab daily Jun 27, 2014 Inactive PAXIL 10 MG TABS 1 tablet daily Jul 26, 2014 Inactive LEXAPRO 5 MG TABS one to 2 tablets daily Oct 07, 2014 Active Immunizations Vaccine Date Status hepatitis [...] - 8462-4 BP DIASTOLIC 86 mm Hg Oct 07, 2014 height E&M - 8302-2 HEIGHT 60 in Oct 07, 2014 weight E&M - 3141-9 WEIGHT 121.50 lb Oct 07, 2014 temperature E&M TEMPERATURE 98.5 deg f Oct 07, 2014 respiratory rate E&M - 9279-1 RESP RATE 16 /min Oct 07, 2014 pulse rate E&M - 8867-4 PULSE RATE 80 /min Oct 07, 2014 blood pressure, systolic - 8480-6 BP SYSTOLIC 122 mm Hg Oct 07, 2014 blood pressure, diastolic - 8462-4 BP DIASTOLIC 82 mm Hg Results Date Description Test Name Value Reference Interpretation Status Jun 27, hemoglobin, blood HGB 13.2 g/dL 12.0-16.0 2014Jun 27, hematocrit, blood HCT 39.9 % 36.0-48.0 2014Jun 27, platelet count PLATELETS 322 K/CMM 517-384 7681 /mm3 Jun 27, thyroid TSH 0.926 uIU/mL 0.360-3.740 2014 stimulating hormone, serum August 23, vaginal Pap smear PAP SMEAR Normal null 2012 results
--- OUTSIDE RECORDS SUMMARY | 2018-12-24 07:42 | XMS REPORT | Summary of Care ---
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 amoxicillin 875 mg Take 1 tablet 20 tablet 0 11/23/2018 Active tabletIndications: by mouth 2 Strep pharyngitis (two) times daily. amoxicillin 875 mg Take 1 tablet 20 tablet 0 11/23/2018 11/23/2018 Discontinued tabletIndications: by mouth 2 Strep pharyngitis (two) times daily for 10 days. documented as [...] this encounter Visit Diagnoses Diagnosis Strep pharyngitis Streptococcal sore throat documented in this encounter Insurance Payer Benefit Plan / Subscriber ID Effective Phone Address Type Group Dates [facility] xxxxxxxxx 2015-Ese [address] Medicaid HEALTH CHOICE - [place] [id number] MANAGED MEDICAID [place], [place] [address] AETNA AETNA HMO [id number] 2016-Pres HMO ent documented as of this encounter
--- OUTSIDE RECORDS SUMMARY | 2018-12-24 07:42 | XMS REPORT | Summary of Care ---
:1995 Author Organization [facility] Address [address] [place] [id number] Care Team Providers Name Role Phone Tony Addison Primary Care Provider Reason for Visit Reason Comments Sore Throat 3 days Encounter Details Date Type Department Care Team Description 11/20/2018 Urgent Care [facility] Unknown, Attending Viral illness (Primary Dx); Urgent Care Fariba Poe, ROSALIE [address] [address] Sore throat [address] [facility] [place] [address] [place] [address] Allergies No Known Allergiesdocumented as of this encounter (statuses as of 11/20/2018) Medications Medication Sig Dispensed Refills Start Date End Date Status acetaminophen-codeine Take 1 tablet by 20 tablet 0 06/12/2017 Active (TYLENOL-CODEINE #3) mouth every 6 300-30 mg tablet (six) hours as needed for Pain (scale 4-6) (for cough). documented as of this encounter (statuses as of 11/20/2018) Active Problems Problem Noted Date 33 weeks gestation of 09/08/2015 Premature labor 09/08/2015 30 weeks gestation of 08/13/2015 Premature uterine contractions causing threatened premature labor, 08/13/2015 antepartum Premature uterine contractions causing threatened premature labor 08/13/2015 documented as of this encounter (statuses as of 11/20/2018) Social History Tobacco Use Types Packs/Day Years Used Date Former Smoker Smokeless Tobacco: Never Used Sex Assigned at Date Recorded Not on file Job Start Date Occupation Industry Not on file Not on file Not on file Travel History Travel Start Travel End No recent travel history available. documented as of this encounter Last Filed Vital Signs Vital Sign Reading Time Taken Comments Blood Pressure 125/78 11/20/2018 8:13 PM CDT Pulse 83 11/20/2018 8:13 PM CDT Temperature 37.2 C (99 F) 11/20/2018 8:13 PM CDT Respiratory Rate 18 11/20/2018 8:13 PM CDT Oxygen Saturation 99% 11/20/2018 8:13 PM CDT Inhaled Oxygen Concentration - - Weight 56 kg (123 lb 6.4 oz) 11/20/2018 8:13 PM CDT Height 149.9 cm (4' 11") 11/20/2018 8:13 PM CDT Body Mass Index 24.92 11/20/2018 8:13 PM CDT documented in this encounter Patient Instructions Patient InstructionsFariba Poe FNP - 11/20/2018 9:00 PM CDT Viral Syndrome (Adult) A viral illness may cause a number of symptoms. The symptoms depend on the part of the body that thevirus affects. If it settles in your nose, throat, and lungs , it may cause cough, sore throat, congestion, and sometimes headache. If it settles in your stomach and intestinal tract, it may cause vomiting and diarrhea. Sometimes it causes vague symptoms like "aching all over," feeling tired, loss of appetite, or fever. A viral illness usually lasts 1 to 2 weeks, but sometimes it lasts longer. In some cases, a more serious infection can look like a viral syndrome in the first few days of the illness. You may need another exam and additional tests to know the difference. Watch for the warning signs listed below. Home care Follow these guidelines for taking care of yourself at home: If symptoms are severe, rest at home for the first 2 to 3 days. Stay away from cigarette smoke - both your smoke and the smoke from others. You may use xiig-cod-xipuxtidekshsmwltrlz or ibuprofen for fever, muscle aching, and headache, unless another medicine was prescribed for this. If you have chronic liver or kidney disease or ever had a stomach ulcer or GI bleeding , talk with your doctor before using these medicines. No one who isyounger than 18 and ill with a fever should take aspirin. It may cause severe disease or . Your appetite may be poor, so a light diet is fine. Avoid dehydration by drinking 8 to 12 8-ounceglasses of fluids each day. This may include water; orange juice; lemonade; apple, grape, and cranberry juice; clear fruit drinks; electrolyte replacement and sports drinks; and decaffeinated teas and coffee. If you have been diagnosed with a kidney disease, ask your doctor how much and what types of fluids you should drink to prevent dehydration. If you have kidney disease, drinking too much fluid can cause it build up in the your body and be dangerous to your health. Awwk-yee-hhyeaon remedies won't shorten the length of the illness but may be helpful for cough, sore throat; and nasal and sinus congestion. Don't use decongestants if you have high blood pressure. Follow-up care Follow up with your healthcare provider if you do not improve over the next week. Call 911 Call 911 if any of the following occur: Convulsion Feeling weak, dizzy, or like you are going to faint Chest pain, shortness of breath, wheezing, or difficulty breathing When to seek medical advice Call your healthcare provider right away if any of these occur: Cough with lots of colored sputum (mucus) or blood in your sputum Chest pain, shortness of breath, wheezing, or difficulty breathing Severe headache; face, neck, or ear pain Severe, constant pain in the lower right side of your belly (abdominal) Continued vomiting (cant keep liquids down) Frequent diarrhea (more than 5 times a day); blood (red or black color) or mucus in diarrhea Feeling weak, dizzy, or like you are going to faint Extreme thirst Fever of 100.4F (38C) or higher, or as directed by your healthcare provider Date Last Reviewed: 01/17/201519996817-5923 [employer]. [address] [place] [address], [place] [address]. All rights reserved. This information is not intended as a substitute for professional medical care. Always follow your healthcare professional's instructions. Self-Care for Sore Throats Sore throats happen for many reasons, such as colds, allergies, and infections caused by viruses or bacteria. In any case, your throat becomes red and sore. Your goal for self-care is to reduce your discomfort while giving your throat a chance to heal. Moisten and soothe your throat Tips include the following: Try a sip of water first thing after waking up. Keep your throat moist by drinking6 or more glasses of clear liquids every day. Run a cool-air humidifier in your room overnight. Avoid cigarette smoke. Suck on throat lozenges, cough drops, hard candy, ice chips, or frozen fruit- juice bars. Use the sugar-free versions if your diet or medical condition requires them. Gargle to ease irritation Gargling every hour or2 can ease irritation. Try gargling with1 of these solutions: 1/4teaspoon of salt in1/2 cup of warm water An smvb-aqd-wswiyoq anesthetic gargle Use medicine for more relief Vnns-rrm-uqzxrhl medicine can reduce sore throat symptoms. Ask your pharmacist if you have questionsabout which medicine to use: Ease pain with anesthetic sprays. Aspirin or an aspirin substitute also helps. Remember, never give aspirin to anyone 18 or younger, or if you are alreadytaking blood thinners. For sore throats caused by allergies, try antihistamines to block the allergic reaction. Remember: unless a sore throat is caused by a bacterial infection, antibiotics wont help you. Prevent future sore throats Prevention tips include the following: Stop smoking or reduce contact with secondhand smoke. Smoke irritates the tender throat lining. Limit contact with pets and with allergy-causing substances, such as pollen and mold. When youre around someone with a sore throat or cold, wash your hands often to keep viruses orbacteria from spreading. Dont strain your vocal cords. Call your healthcare provider Contact your healthcare provider if you have: A temperature over 101F (38.3C) White spots on the throat Great difficulty swallowing Trouble breathing A skin rash Recent exposure to someone else with strep bacteria Severe hoarseness and swollen glands in the neck or jaw Date Last Reviewed: 11/24/201519997297-9410 [employer]. [address] [place] [address], [place] [address]. All rights reserved. This information is not intended as a substitute for professional medical care. Always follow your healthcare professional's instructions. documented in this encounter Progress Notes Fariba Poe FNP - 11/20/2018 9:00 PM CDT Cc: Chief Complaint Patient presents with Sore Throat 3 days Abby Castillo is a 23 year old female that presents to the urgent care for a sore throat for the past 3 days. She has been taking Dayquil without any relief. Her 13 month old son has also been sick for the past 3 days with fever. Sore Throat Location: Generalized Quality: Sore Severity: Moderate Onset quality: Sudden Duration: 3 days Timing: Constant Progression: Unchanged Chronicity: New Relieved by: Nothing Worsened by: Swallowing Ineffective treatments: dayquil. Associated symptoms: adenopathy Associated symptoms: no chills, no cough, no ear discharge, no ear pain, no fever, no headaches, no postnasal drip and no rash Risk factors: sick contacts (son is sick as well) Allergies Abby has No Known Allergies. Medications Outpatient Medications Prior to Visit Medication Sig Dispense Refill acetaminophen-codeine (TYLENOL-CODEINE #3) 300-30 mg tablet Take 1 tablet by mouth every 6 (six)hours as needed for Pain (scale 4-6) (for cough). 20 tablet 0 No facility-administered medications prior to visit. Histories Past Medical History: Diagnosis Date Endometriosis Past Surgical History: Procedure Laterality Date DILATION AND CURETTAGE (SHX) TONSILLECTOMY TUBAL LIGATION Social History Socioeconomic History Marital status: Single Spouse name: Not on file Number of children: Not on file Years of education: Not on file Highest education level: Not on file Occupational History Not on file Social Needs Financial resource strain: Not on file Food insecurity: Worry: Not on file Inability: Not on file Transportation needs: Medical: Not on file Non-medical: Not on file Tobacco Use Smoking status: Former Smoker Smokeless tobacco: Never Used Substance and Sexual Activity Alcohol use: Not on file Drug use: Not on file Sexual activity: Not on file Lifestyle Physical activity: Days per week: Not on file Minutes per session: Not on file Stress: Not on file Relationships Social connections: Talks on phone: Not on file Gets together: Not on file Attends pentecostalism service: Not on file Active member of club or organization: Not on file Attends meetings of clubs or organizations: Not on file Relationship status: Not on file Intimate partner violence: Fear of current or ex partner: Not on file Emotionally abused: Not on file Physically abused: Not on file Forced sexual activity: Not on file Other Topics Concern Not on file Social History Narrative Not on file History reviewed. No pertinent family history. Review of Systems Constitutional: Negative for chills and fever. HENT: Positive for congestion and sore throat. Negative for ear discharge, ear pain and postnasal drip. Respiratory: Negative for cough. Musculoskeletal: Positive for myalgias. Negative for arthralgias. Skin: Negative for rash. Neurological: Negative for headaches. Psychiatric/Behavioral: Negative for agitation and confusion. Hematological: Positive for adenopathy. Vital Signs BP 125/78 | Pulse 83 | Temp 37.2 C (99 F) (Oral) | Resp 18 | Ht 4' 11" ( 1.499 m) | Wt 123 lb 6.4 oz (56 kg) | LMP (LMP Unknown) | SpO2 99% | BMI 24.92 kg/m Physical Exam Constitutional: She is oriented to person, place, and time. She appears well- developed and well-nourished. No distress. HENT: Head: Normocephalic and atraumatic. Right Ear: Tympanic membrane and ear canal normal. Left Ear: Tympanic membrane and ear canal normal. Nose: Nose normal. Mouth/Throat: Uvula is midline, oropharynx is clear and moist and mucous membranes are normal. Eyes: Conjunctivae are normal. Cardiovascular: Normal rate, regular rhythm, normal heart sounds and intact distal pulses. Pulmonary/Chest: Effort normal and breath sounds normal. Lymphadenopathy: Head (right side): No submandibular and no tonsillar adenopathy present. Head (left side): No submandibular and no tonsillar adenopathy present. She has no cervical adenopathy. Neurological: She is alert and oriented to person, place, and time. Gait normal. Skin: Skin is warm and dry. No rash noted. Psychiatric: She has a normal mood and affect. Her behavior is normal. Thought content normal. Nursing note and vitals reviewed. Recent Labs 11/20/182016 POCTCRSS negative Assessment/Plan 1. Viral illness - No focus suspicious for a bacterial process. Educated patient that viral illness usually last 7-10 days and resolve with symptomatic treatment. Based on onset of symptoms, exam findings, and negative strep test this is likely a viral illness. - educated patient about at home care: Rest Increase fluids -Hydration with clear liquids. Vitamin C Warm salt water gargles for sore throat. Sipping warm drinks may help. Warm Compresses (if sinus pressure or pain). Hand Hygiene (with alcohol gels or hand washing) Advised to take Tylenol or Ibuprofen as per label recommendation as needed for pain or fever - Advised to follow up with PCP, return to Urgent Care, or go to the nearest Emergency Department sooner for any new, worsening, persistent, or concerning symptoms. 2. Sore throat - POCT RAPID STREP SCREEN FOR GROUP A - THROAT CULTURE Plan of care, desired health behaviors, goals, and medication discussed with patient. Education resources provided and reviewed with AVS. Patient/guardian/family verbalized understanding & agrees to plan of care. This visit did not involve counseling and coordination that comprised more than 50% of the visit time. If applicable, the [place] [employer] database was accessed to review any controlled substance prescription claims data. The [place] prescription claims data in [employer] was reviewed to assess patient compliance with the medication treatment plan. ROSALIE Esparza 11/20/2018 8:55 PM documented in this encounter Plan of Treatment Name Type Priority Associated Diagnoses Date/Time THROAT CULTURE LAB Routine Sore throat 11/20/2018 9:00 PM CDT Health Maintenance Due Date Last Done Comments VARICELLA VACCINES (1 of 2 - 13+ 2006 2-dose series) HPV VACCINES (1 - Female 3-dose 2008 series) DTaP,Tdap,and Td Vaccines (1 - 2012 Tdap) PAP SMEAR 2014 INFLUENZA VACCINE 12/24/2018 PNEUMOCOCCAL 0-64 YEARS COMBINED Aged Out No longer eligible based on SERIES patient's age to complete this topic documented as of this encounter Procedures Procedure Name Priority Date/Time Associated Diagnosis Comments POCT RAPID STREP Routine 11/20/2018 8:17 PM Sore throat Results for this SCREEN FOR GROUP A CDT procedure are in the results section. documented in this encounter Results POCT RAPID STREP SCREEN FOR GROUP A (11/20/2018 8:17 PM CDT) POCT GP A STREP negative Negative - Negative Specimen Swab - THROAT Narrative Performed At accurate development and interpretation of all internal controls documented in this encounter Visit Diagnoses Diagnosis Viral illness - Primary Unspecified viral infection, in conditions classified elsewhere and of unspecified site Sore throat Acute pharyngitis documented in this encounter documented as of this encounter
--- OUTSIDE RECORDS SUMMARY | 2018-12-24 07:42 | XMS REPORT | Summary of Care ---
:1995 Author Organization [facility] Address [address] [place] [id number] Care Team Providers Name Role Phone Tony Addison Primary Care Provider Reason for Visit Reason Comments Sore Throat 3 days Encounter Details Date Type Department Care Team Description 11/20/2018 Urgent Care [facility] Unknown, Attending Viral illness (Primary Dx); Urgent Care Fariba Poe, ROSALIE [address] [address] Sore throat [address] [facility] [place] [address] [place] [address] Allergies No Known Allergiesdocumented as [...] the smoke from others. You may use fvvk-ixk-zwfrzwbbzwbxckpnwyfe or ibuprofen for fever, muscle aching, and [...] body and be dangerous to your health. Alpc-wpc-zxuhdks remedies won't shorten the length of the [...] by your healthcare provider Date Last Reviewed: 01/17/201519995036-7261 [employer]. [address] [place] [address], [place] [address]. All rights reserved. This information is not [...] salt in1/2 cup of warm water An qgnr-cbv-yexfznq anesthetic gargle Use medicine for more relief Ihnh-wtl-pdkldhq medicine can reduce sore throat symptoms. Ask [...] the neck or jaw Date Last Reviewed: 11/24/201519991126-7222 [employer]. [address] [place] [address], [place] [address]. All rights reserved. This information is not [...] file Gets together: Not on file Attends oriental orthodox service: Not on file Active member of [...] of the visit time. If applicable, the [place] [employer] database was accessed to review any controlled substance prescription claims data. The [employer] prescription claims data in [employer] was reviewed to assess patient compliance with the medication treatment plan. ROSALIE Esparza 11/20/2018 8:55 PM documented in this encounter Plan of Treatment Name Type Priority Associated Diagnoses Order Schedule THROAT CULTURE LAB Routine Sore throat Ordered: 11/20/2018 Health Maintenance Due Date Last Done Comments [...] Specimen Swab - THROAT Narrative Performed At [facility] development and interpretation of all internal controls documented in this encounter Visit Diagnoses Diagnosis Viral illness - Primary Unspecified viral infection, in conditions classified elsewhere and of unspecified site Sore throat Acute pharyngitis documented in this encounter documented as of this encounter
[2018-12-24] MEDS ORDERED: KETOROLAC 30 MG/ML INJ ONE (08:05)
[2018-12-24 08:08] LABS: Absolute Lymphocytes (CBC) 2.8 K/uL (0.7-4.9); Basophils % 0.8 % (0-1.3); Hematocrit 41.4 % (36.0-45.0); Lymphocytes % 42.2 % (15.3-44.8); MPV 8.2 fL (7.6-11.3)
[2018-12-24 08:24] LABS: BUN Blood Urea Nitrogen 8 mg/dL (7-18); Bicarbonate 23 mmol/L (21-32); Glucose Level 96 mg/dL (74-106); Potassium 4.2 mmol/L (3.5-5.1); Sodium Level 142 mmol/L (136-145)
[2018-12-24] MEDS ORDERED: ONDANSETRON 4 MG/2 ML VIAL ONE (08:41)
[2018-12-24] MEDS ORDERED: MORPHINE 4 MG/ML SYR ONE (08:41)
[2018-12-24 10:04] LABS: Urine Blood NEGATIVE (NEG); Urine Glucose NEGATIVE (NEG); Urine Protein NEGATIVE (NEG)
[2018-12-24] MEDS ORDERED: HYDROCODONE/APAP 10/325 TAB ONE (10:09)
--- NOTE | 2018-12-24 10:09 | ER ---
Nurse's Notes [facility] Name: Abby Uribe Age: 23 yrs Sex: Female : 1995 Arrival Date: 12/24/2018 Time: 07:43 Bed 7 Private MD: Diagnosis: Abdominal and pelvic pain Presentation: 12/24 07:48 Presenting complaint: Patient states: i have abdominal cramping since 6 am today; hx of hj endometriosis. Transition of care: patient was not received from another setting of care. Onset of symptoms was December 24, 2018. Risk Assessment: Do you want to hurt yourself or someone else? Patient reports no desire to harm self or others. Initial Sepsis Screen: Does the patient meet any 2 criteria? No. Patient's initial sepsis screen is negative. Does the patient have a suspected source of infection? No. Patient's initial sepsis screen is negative. Care prior to arrival: None. 07:48 Method Of Arrival: Ambulatory 07:48 Acuity: PRABHJOT 3 hj Triage Assessment: 07:50 General: Appears in no apparent distress. uncomfortable, Behavior is calm, cooperative, hj appropriate for age. Pain: Complains of pain in back and abdomen. GI: Reports lower abdominal pain. 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 - Social history:: Smoking status: Patient/guardian denies using tobacco, Patient/guardian denies using alcohol. - Ebola Screening: : Patient negative for fever greater than or equal to 101.5 degrees Fahrenheit, and additional compatible Ebola Virus Disease symptoms Patient denies exposure to infectious person Patient denies travel to an Ebola-affected area in the 21 days before illness onset. Screenin:50 Abuse screen: Denies threats or abuse. Denies injuries from another. Nutritional hj screening: No deficits noted. Tuberculosis screening: No symptoms or risk factors identified. Fall Risk None identified. Assessment: 07:51 GI: Bowel sounds present X 4 quads. Abd is soft Abdomen is tender to palpation. hj 07:51 General: Appears in no apparent distress. uncomfortable, Behavior is calm, cooperative, hj appropriate for age. Pain: Complains of pain in abdomen and back. Neuro: Level of Consciousness is awake, alert, obeys commands, Oriented to person, place, time, situation, Appropriate for age. Cardiovascular: Capillary refill < 3 seconds Patient's skin is warm and dry. Respiratory: Airway is patent Respiratory effort is even, unlabored, Respiratory pattern is regular, symmetrical. : No signs and/or symptoms were reported regarding the genitourinary system. EENT: No signs and/or symptoms were reported regarding the EENT system. Derm: No signs and/or symptoms reported regarding the dermatologic system. Musculoskeletal: No signs and/or symptoms reported regarding the musculoskeletal system. 09:53 Reassessment: Patient and/or family updated on plan of care and expected duration. Pain hj level reassessed. Patient is alert, oriented x 3, equal unlabored respirations, skin warm/dry/pink. awaiting for results and POC;. 10:42 Reassessment: Patient and/or family updated on plan of care and expected duration. Pain hj level reassessed. Patient is alert, oriented x 3, equal unlabored respirations, skin warm/dry/pink. for D/C:. Vital Signs: 07:51 BP 158 / 91; Pulse 80; Resp 18; Temp 98.3(O); Pulse Ox 100% on R/A; Weight 54.88 kg; hj Height 4 ft. 11 in. (149.86 cm); Pain 8/10; 09:52 BP 114 / 76; Pulse 80; Resp 18; Pulse Ox 100% on R/A; hj 10:42 BP 112 / 70; Pulse 78; Resp 18; Pulse Ox 100% on R/A; hj 07:51 Body Mass Index 24.44 (54.88 kg, 149.86 cm) ED Course: 07:43 Patient arrived in ED. mr 07:44 [facility]pos [facility]C [facility] kb 07:44 Raymond Mendiola MD is Attending Physician. kb 07:44 Reggie Cabrera, TIM is Primary Nurse. hj 07:49 Triage completed. hj 07:51 Arm band placed on. hj 07:51 Patient has correct armband on for positive identification. Placed in gown. Bed in low hj position. Call light in reach. Side rails up X 1. 07:57 Urine collected: clean catch specimen, clear. ms 08:02 Initial lab(s) drawn, by me, sent to lab. Inserted saline lock: 22 gauge in right hj antecubital area, using aseptic technique. Blood collected. 10:10 US Transvaginal Study (Probe) In Process Unspecified. EDMS 10:42 No provider procedures requiring assistance completed. IV discontinued, intact, hj bleeding controlled, No redness/swelling at site. Pressure dressing applied. Administered Medications: 08:00 Drug: TORadol - Ketorolac 15 mg Route: IVP; Site: right antecubital; hj 08:09 Follow up: Response: No adverse reaction; Pain is decreased hj 08:35 Drug: morphine 4 mg Route: IVP; Site: right antecubital; hj 10:09 Follow up: Response: No adverse reaction; Pain is decreased hj 10:10 Follow up: Response: RASS: Alert and Calm (0) hj 08:35 Drug: Zofran 4 mg Route: IVP; Site: right antecubital; hj 10:09 Follow up: Response: No adverse reaction; Nausea is decreased hj 10:07 Drug: [place] 10 mg-325 mg 1 tabs Route: PO; hj 10:10 Follow up: Response: No adverse reaction; RASS: Alert and Calm (0) Outcome: 10:07 Discharge ordered by . kb 10:42 Discharged to home ambulatory. hj 10:42 Condition: stable 10:42 Discharge instructions given to patient, Instructed on discharge instructions, follow up and referral plans. Demonstrated understanding of instructions, follow-up care. 10:43 Patient left the ED. hj Signatures: Dispatcher [employer] EDMS Eun Campos, MYRIAMC MACHINE PACKAGING TECHNICIAN-Tatiana Mendes mr HodgeJill ms, Henry, TIM RN hj
--- NOTE | 2018-12-24 10:09 | EDPHYS ---
Physician Documentation [facility] Name: Abby Uribe Age: 23 yrs Sex: Female : 1995 Arrival Date: 12/24/2018 Time: 07:43 Bed 7 Private MD: ED Physician Raymond Mendiola HPI: 12/24 08:50 This 23 yrs old Female presents to ER via Ambulatory with complaints of kb Abdominal Pain. 08:50 The patient presents with abdominal pain in the lower abdomen. Onset: The kb symptoms/episode began/occurred this morning. The symptoms radiate to right back. Associated signs and symptoms: none. The symptoms are described as constant, sharp. Modifying factors: The symptoms are alleviated by nothing, the symptoms are aggravated by nothing. Severity of pain: At its worst the pain was moderate in the emergency department the pain is unchanged. The patient has experienced similar episodes in the past. The patient has not recently seen a physician. Pt reports she has endometriosis and has had pain to lower abd and right back since this morning. States she recently had all of the endometriosis cleaned out and had her tubes removed and is scheduling a hysterectomy this week. Took tyelnol with codeine this morning without relief. . 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 - Social history:: Smoking status: Patient/guardian denies using tobacco, Patient/guardian denies using alcohol. - Ebola Screening: : Patient negative for fever greater than or equal to 101.5 degrees Fahrenheit, and additional compatible Ebola Virus Disease symptoms Patient denies exposure to infectious person Patient denies travel to an Ebola-affected area in the 21 days before illness onset. ROS: 08:50 Constitutional: Negative for fever, chills, and weight loss, ENT: Negative for injury, kb pain, and discharge, Neck: Negative for injury, pain, and swelling, Cardiovascular: Negative for chest pain, palpitations, and edema, Respiratory: Negative for shortness of breath, cough, wheezing, and pleuritic chest pain, : Negative for injury, bleeding, discharge, and swelling, MS/Extremity: Negative for injury and deformity, Skin: Negative for injury, rash, and discoloration, Neuro: Negative for headache, weakness, numbness, tingling, and seizure. 08:50 Abdomen/GI: Positive for abdominal pain. 08:50 Back: Positive for pain at rest, of the right low back. Exam: 08:49 Constitutional: This is a well developed, well nourished patient who is awake, alert, kb and in no acute distress. Head/Face: Normocephalic, atraumatic. Chest/axilla: Normal chest wall appearance and motion. Nontender with no deformity. No lesions are appreciated. Cardiovascular: Regular rate and rhythm with a normal S1 and S2. No gallops, murmurs, or rubs. Normal PMI, no JVD. No pulse deficits. Respiratory: Lungs have equal breath sounds bilaterally, clear to auscultation and percussion. No rales, rhonchi or wheezes noted. No increased work of breathing, no retractions or nasal flaring. Abdomen/GI: Soft, non-tender, with normal bowel sounds. No distension or tympany. No guarding or rebound. No evidence of tenderness throughout. Back: No spinal tenderness. No costovertebral tenderness. Full range of motion. Skin: Warm, dry with normal turgor. Normal color with no rashes, no lesions, and no evidence of cellulitis. MS/ Extremity: Pulses equal, no cyanosis. Neurovascular intact. Full, normal range of motion. Neuro: Awake and alert, GCS 15, oriented to person, place, time, and situation. Cranial nerves II-XII grossly intact. Motor strength 5/5 in all extremities. Sensory grossly intact. Cerebellar exam normal. Normal gait. Vital Signs: 07:51 BP 158 / 91; Pulse 80; Resp 18; Temp 98.3(O); Pulse Ox 100% on R/A; Weight 54.88 kg; hj Height 4 ft. 11 in. (149.86 cm); Pain 8/10; 09:52 BP 114 / 76; Pulse 80; Resp 18; Pulse Ox 100% on R/A; hj 10:42 BP 112 / 70; Pulse 78; Resp 18; Pulse Ox 100% on R/A; hj 07:51 Body Mass Index 24.44 (54.88 kg, 149.86 cm) hj MDM: 07:44 Patient medically screened. kb 08:49 Data reviewed: vital signs, nurses notes. Data interpreted: Pulse oximetry: on room air kb is 100 %. Interpretation: normal. 09:29 Counseling: I had a detailed discussion with the patient and/or guardian regarding: the kb historical points, exam findings, and any diagnostic results supporting the discharge/admit diagnosis, lab results, radiology results, the need for outpatient follow up, an OB/Gyne specialist, to return to the emergency department if symptoms worsen or persist or if there are any questions or concerns that arise at home. 12/24 07:48 Order name: Basic Metabolic Panel; Complete Time: 08:26 kb 12/24 07:48 Order name: CBC with Diff; Complete Time: 08:12 kb 12/24 07:59 Order name: Urine Dipstick--Ancillary (enter results); Complete Time: 10:06 eb 12/24 07:59 Order name: Urine --Ancillary (enter results); Complete Time: 10:06 eb 12/24 08:31 Order name: US Transvaginal Study (Probe) kb 12/24 07:48 Order name: IV Saline Lock; Complete Time: 08:01 kb 12/24 07:48 Order name: Labs collected and sent; Complete Time: 08:02 kb 12/24 07:48 Order name: Urine Dipstick-Ancillary (obtain specimen); Complete Time: 07:53 kb Administered Medications: 08:00 Drug: TORadol - Ketorolac 15 mg Route: IVP; Site: right antecubital; hj 08:09 Follow up: Response: No adverse reaction; Pain is decreased hj 08:35 Drug: morphine 4 mg Route: IVP; Site: right antecubital; hj 10:09 Follow up: Response: No adverse reaction; Pain is decreased hj 10:10 Follow up: Response: RASS: Alert and Calm (0) hj 08:35 Drug: Zofran 4 mg Route: IVP; Site: right antecubital; hj 10:09 Follow up: Response: No adverse reaction; Nausea is decreased hj 10:07 Drug: [place] 10 mg-325 mg 1 tabs Route: PO; hj 10:10 Follow up: Response: No adverse reaction; RASS: Alert and Calm (0) hj Disposition: 12/25 09:17 Co-signature as Attending Physician, Raymond Mendiola MD I agree with the assessment and mack plan of care. Disposition: 12/24/18 10:07 Discharged to Home. Impression: Abdominal and pelvic pain. - Condition is Stable. - Discharge Instructions: Pelvic Pain, Female, [id number]. - Medication Reconciliation Form, Thank You Letter, Antibiotic Education, Prescription Opioid Use form. - Follow up: Emergency Department; When: As needed; Reason: Worsening of condition. Follow up: Private Physician; When: 2 - 3 days; Reason: Recheck today's complaints, Continuance of care, Re-evaluation by your physician. Signatures: Dispatcher [employer] EDMS Eun Campos, BASEBALL INSPECTOR AND REPAIRER-C BASEBALL INSPECTOR AND REPAIRER-Raymond Angel MD MD cha Joaquin, Henry, RN RN carmen Corrections: (The following items were deleted from the chart) 12/24 10:43 10:07 12/24/2018 10:07 Discharged to Home. Impression: Abdominal and pelvic pain. hj Condition is Stable. Forms are Medication Reconciliation Form, Thank You Letter, Antibiotic Education, Prescription Opioid Use. Follow up: Emergency Department; When: As needed; Reason: Worsening of condition. Follow up: Private Physician; When: 2 - 3 days; Reason: Recheck today's complaints, Continuance of care, Re-evaluation by your physician. kb
--- NOTE | 2018-12-24 11:01 | RAD REPORT ---
EXAM DESCRIPTION: US - Transvaginal Study Probe - 12/24/2018 10:09 am CLINICAL HISTORY: Pelvic pain COMPARISON: none FINDINGS: The uterus measures 6 x 3 x 4cm. A fibroid is not seen. The endometrial stripe measures 3 millimeters The ovaries are normal in size and echotexture. Right and left adnexal unremarkable No significant free fluid is seen. IMPRESSION: Unremarkable pelvic ultrasound
== END 2018-12-24 10:43 | disposition home or self-care (01) ==
LOC: ER 07:38
DX: R10.2 Pelvic and perineal pain (principal); R10.9 Unspecified abdominal pain
CPT/HCPCS: 85025; 80048; 36415; 81025; 81003; 76830; 96375; 96374; 99284; J2405

== ENCOUNTER 2019-08-22 23:46 | Emergency (ER) | payer OTHER ==
--- OUTSIDE RECORDS SUMMARY | 2019-08-22 23:49 | XMS REPORT | Summary of Care ---
:1995 Author Organization [facility] Address [address] [place] [id number] Care Team Providers Name Role Phone OrionTerra hendrix Primary Care Provider Reason for Referral (JONAS) Status Reason Specialty Diagnoses / Referred By Referred To Procedures Contact Contact New Request Rheumatology Diagnoses Right wrist pain Jr Lockett, Procedures CONSULT/REFERRAL RHEUMATOLOGY [address] [place] [id number] Reason for Visit Reason Comments Finger Pain right thumb pain x today Encounter Details Date Type Department Care Team Description 06/07/2019 Urgent Care Person [facility] Unknown, Attending R ight wrist pain Urgent Care Jr Lockett MD [address] [place] [id number] (Primary Dx) [address] [place] [address] Allergies No Known Allergiesdocumented as of this encounter (statuses as of 06/07/2019) Medications Medication Sig Dispensed Refills Start Date End Date Status naproxen 375 mg Take 1 tablet 60 tablet 1 06/07/2019 Active tabletIndications: by mouth 2 Right wrist pain (two) times daily with meals. acetaminophen-code 1/2 - 1 tab 10 tablet 0 06/07/2019 Active ine 300-30 mg Every 4hrs as tabletIndications: needed for pain Right wrist pain or cough requiring narcotic acetaminophen-code Take 1 tablet 20 tablet 0 06/12/20172019 Discontinued ine by mouth every (TYLENOL-CODEINE 6 (six) hours #3) 300-30 mg as needed for tablet Pain (scale 4-6) (for cough). amoxicillin 875 mg Take 1 tablet 20 tablet 0 11/23/20182019 Discontinued tabletIndications: by mouth 2 Strep pharyngitis (two) times daily. documented as of this encounter (statuses as of 06/07/2019) Active Problems Problem Noted Date 33 weeks gestation of 09/08/2015 Premature labor 09/08/2015 30 weeks gestation of 08/13/2015 Premature uterine contractions causing threatened alexys ature labor, 08/13/2015 antepartum Premature uterine contractions causing threatened alexys ature labor 08/13/2015 documented as of this encounter (statuses as of 06/07/2019) Social History Tobacco Use Types Packs/Day Years [...] Sign Reading Time Taken Comments Blood Pressure 140/76 06/07/2019 7:48 PM CIVIL ENGINEERING DRAFTSPERSON Pulse 76 06/07/2019 7:47 PM CIVIL ENGINEERING DRAFTSPERSON Temperature 37 C (98.6 F) 06/07/2019 7:47 PM CIVIL ENGINEERING DRAFTSPERSON Respiratory Rate 17 06/07/2019 7:47 PM CIVIL ENGINEERING DRAFTSPERSON Oxygen Saturation 98% 06/07/2019 7:47 PM CIVIL ENGINEERING DRAFTSPERSON Inhaled Oxygen Concentration - - Weight 59.2 kg (130 lb 9.6 oz) 06/07/2019 7:47 PM CIVIL ENGINEERING DRAFTSPERSON Height 151.1 cm (4' 11.5") 06/07/2019 7:47 PM CIVIL ENGINEERING DRAFTSPERSON Body Mass Index 25.94 06/07/2019 7:47 PM CIVIL ENGINEERING DRAFTSPERSON documented in this encounter Patient Instructions Patient InstructionsJr Lockett MD - 06/07/2019 7:45 PM CST1. Right wrist pain - naproxen 375 mg tablet; Take 1 tablet by mouth 2 (two) times daily with meals. Dispense: 60 tablet; Refill: 1 - SPLINT WRIST OR ANKLE - acetaminophen-codeine 300-30 mg tablet; 1/2 - 1 tab Every 4hrs as needed for pain or cough requiring narcotic Dispense: 10 tablet; Refill: 0 Recurrent joint pain. May want to see Rheumatology to see whether there is an explanation. Pain -- Naproxen & Acetaminophen Naproxen 375mg twice a day. If any risk of heart problems, limit to 750mg a day. AND With each Naproxen, take 2 tablets of Acetaminophen (APAP, Tylenol) 500mg May take Acetaminophen 500mg take 2 tablets two additional times each day for a total of 8 APAP tablets a day. Acetaminophen and naproxen taken at the same time give greater relief than expected if add the two effects together, called "1+1 = 3" Codeine if narcotic necessary, Has at tylenol 300mg in it, to be counted in daily total. Do not drive or engage in hazardous activities for 4 hours after taking codeine. If codeine is desired shortly after taking APAP, it is all right to overdose on APAP on rare occasions. See primary provider if follow up needed. Return here as needed. L ENGINEERING DRAFTSPERSON documented in this encounter Progress Notes Jr Lockett MD - 06/07/2019 7:45 PM CST Cc: Chief Complaint Patient presents with Finger Pain right thumb pain x today Abby Uribe is a 23 year old female. HPI This morning awoke and noticed right radial pain radiating into IP thumb and into thenar aspect of index MC. History of recurrent pain: this one 3rd time in 8 mos. Also history of various recurrent joint pains except elbows. Endometriosis History of work-up for Lupus but not positive. Medications Outpatient Medications Prior to Visit Medication Sig Dispense Refill amoxicillin 875 mg tablet Take 1 tablet by mouth 2 (two) times daily. 20 tablet 0 acetaminophen-codeine (TYLENOL-CODEINE #3) 300-30 mg tablet Take 1 tablet by mouth every 6 (six)hours as needed for Pain (scale 4-6) (for cough). 20 tablet 0 No facility-administered medications prior to visit. Review of Systems Denies symptoms of current community illnesses. Constitutional: Denies fever Skin: Denies: Rash Allergy/Immunology: Denies: rhinorrhea ENT: Denies: Earache, sore throat Respiratory: Denies: cough Gastrointestinal: Denies: vomiting, diarrhea Musculoskeletal: right wrist pain Denies: body aches Neuro: Denies: headache Past Medical History: No date: Endometriosis Past Surgical History: No date: DILATION AND CURETTAGE (SHX) No date: TONSILLECTOMY No date: TUBAL LIGATION History reviewed. No pertinent family history. Social History Socioeconomic History Marital status: Single [...] file Gets together: Not on file Attends confucianist service: Not on file Active member of club or organization: Not on file Attends meetings of clubs or organizations: Not on file Relationship status: Not on file Intimate partner violence: Fear of current or ex partner: Not on file Emotionally abused: Not on file Physically abused: Not on file Forced sexual activity: Not on file Other Topics Concerns: Not on file Social History Narrative Not on file Vital Signs BP (!) 140/76 | Pulse 76 | Temp 37 C (98.6 F) (Oral) | Resp 17 | Ht 4' 11.5" (1.511 m) | Wt130 lb 9.6 oz (59.2 kg) | LMP (LMP Unknown) | SpO2 98% | BMI 25.94 kg/m Physical Exam Head: Inspection normal. Eyes: PERRL, conjunctiva/sclera normal ENT: moist mucous membranes, palate normal uvula red spots consistent with angiomas, pharynx normal,nose normal Neck: non-tender, no masses or swelling Respiratory/Chest: breath sounds normal, no wheezing Cardiovascular: regular rate and rhythm, heart sounds normal GI: abdomen soft, non-tender, MS: right wrist 1-2+ tender radial aspect joint line, full range of motion. Colten negative. Distal functions normal including sense, color, temp. Legs: non-tender Back: non-tender, no CVA tenderness Skin: no rash. Normal color and turgor. Neurologic: alert, speech normal, gait normal Psychiatric: Interactive, Mood normal Assessment/Plan 1. Right wrist pain - naproxen 375 mg tablet; Take 1 tablet by mouth 2 (two) times daily with meals. Dispense: 60 tablet; Refill: 1 - SPLINT WRIST OR ANKLE - CONSULT/REFERRAL RHEUMATOLOGY - acetaminophen-codeine 300-30 mg tablet; 1/2 - 1 tab Every 4hrs as needed for pain or cough requiring narcotic Dispense: 10 tablet; Refill: 0 Recurrent joint pain. May want to see Rheumatology to see whether there is an explanation. Pain -- Naproxen & Acetaminophen Naproxen 375mg twice a day. If any risk of heart problems, limit to 750mg a day. AND With each Naproxen, take 2 tablets of Acetaminophen (APAP, Tylenol) 500mg May take Acetaminophen 500mg take 2 tablets two additional times each day for a total of 8 APAP tablets a day. Acetaminophen and naproxen taken at the same time give greater relief than expected if add the two effects together, called "1+1 = 3" Codeine if narcotic necessary, Has at tylenol 300mg in it, to be counted in daily total. Do not drive or engage in hazardous activities for 4 hours after taking codeine. If codeine is desired shortly after taking APAP, it is all right to overdose on APAP on rare occasions. See primary provider if follow up needed. Return here as needed. Ingrid Chincihlla RN - 06/07/2019 7:45 PM CST Abby Uribe is a 23 year old female here for Chief Complaint Patient presents with Finger Pain right thumb pain x today Denies trauma. No acute distress noted. Medications and allergies reviewed with patient. L ENGINEERING DRAFTSPERSON documented in this encounter Plan of Treatment Health Maintenance Due Date Last Done Comments VARICELLA VACCINES ( of 2 - 1994 2-dose childhood series) DTaP,Tdap,and Td Vaccines (1 - 2004 Tdap) HPV VACCINES (1 - Female 2-dose 2004 series) PAP SMEAR 2014 INFLUENZA VACCINE (#1) 2018 PNEUMOCOCCAL 0-64 YEARS COMBINED Aged Out No longer eligible based on SERIES patient's age to complete this topic documented as of this encounter Results Not on filedocumented in this encounter Visit Diagnoses Diagnosis Right wrist pain - Primary Pain in joint, forearm documented in this encounter documented as of this encounter
--- OUTSIDE RECORDS SUMMARY | 2019-08-22 23:49 | XMS REPORT ---
:1995 Author Organization [facility] t Address [address] [place] [address] Care Team Providers Name Role Phone Unavailable Unavailable Unavailable Payers Payer Name Policy Type Policy Number Effective Date Expiration D ate Problems This patient has no known problems. Allergies, Adverse Reactions, Alerts Allergy Name Allergy Status Severity Reaction(s) Onset Inactive Treat ing Comments Type Date Date Clinician No Known DA Active U 2019-0 Allergies 708 00:00: 00 No Known DA Active U 2017-0 Intolerances 6-15 00:00: 00 Medications This patient has no known medications. Results Test Description Test Time Test Comments Text Results Atomic Results Result Comments MARU COVINGTON 2019-01-04 RUN DATE: THAN 14:54:00 01/04/19 [facility] PAGE 1 RUN TIME: 1523 PROLAPSE/KAREN Specimen Inquiry RUN USER: INTERFACE PATIENT: DREA MATHIAS LOC: VIOLA Nicholas #: [id number] AGE/SX: 23/F ROOM: RE01/02/19REG DR: Emelina Anne MD : BED: DIS: STATUS: PRE IN TLOC: SPEC #: [id number] RECD: 01/02/19 STATUS: [facility] #: [id number] LEE: - [facility] [place] DR: Emelina Anne MD ENTERED: 01/03/19 SP TYPE: UTERUSOTH O THR DR: Mart Anne MD ORDERED: LEVEL V SURGICA CODES: [id number] - UTERUS, NOS COPIES TO: Emelina Anne MD [address] [place] [address] Mart Anne MD [address] [facility] [address] [place], [place] [address] PROCEDURES: LEVEL V SURGICA (Incomplete) TISSUES: UTERUS, NOS - UTERUS AND CERVIX CLINICAL HISTORY 23 year old, endometriosis (kr) FINAL DIAGNOSIS [place] t[place], hysterectomy: cervix - focal parakeratosis and papillary endocervicitis - no dy splasia identified endometrium - benign, inactive myometrium - no significant path ologic alteration uterine serosa - no significant pathologic alteration CPT code(s): 94647 lsh/kr dt: 01/04/19 GROSS DESCRIPTION ANATOMIC SOURCE OF TISSUE (per Requisition): Uterus, cervix The specimen is received in formalin in a container labeled with the patient's na me and designated "uterus and cervix". The specimen consists of a 45 gm, 8.0 x 5.5 x 3.[address]us with an attached cervix. CONTINUED ON NEXT PAGE RUN DATE: 01/04/19 [facility] PAGE 2 RUN TIME: 1523 Specimen Inquiry RUN USER: INTERFACE SPEC #: [id number] PATIENT: DREA FERNANDEZ #[id number] (Continued) GROSS DESC RIPTION (Continued) The uterine serosa is pink-white and smooth. There are no adhesions . The 3.5 cm ectocervix displays a central 1 cm slit-like os. The endometrium is torre-pink and f ocally hemorrhagic with a thickness measuring up to 0.2 cm. The myometrium is measures up to 1 .6 cm. There are no nodules. Section code: A1 - cervix, A2 - anterior endomyometrium, A3 - posterior endomyometrium, A4 - additional endometrium. joe 01/03/19 @ 1007 Signed ____ Feli Jerome MD 01/04/19 1454 END OF REPORT CHEMISTRY 7 PROFILE 2019-01-03 05:35:00 Test Item Value Reference Range Comments SODIUM (test code = NA) 136 mEq/L 135-145 POTASSIUM (test code = K) 5.2 mEq/L 3.5-5.0 CHLORIDE (test code = CL) 102 mEq/L 100-115 CARBON DIOXIDE (test code = CO2) 26 mEq/L 22-31 ANION GAP (test code = GAP) 13.30 10-20 GLUCOSE (test code = GLU) 214 mg/dL 65-110 Result s verified by repeat analysis BLOOD UREA NITROGEN (test code = 4 mg/dL 7-18 BUN) GLOMERULAR FILTRATION RATE (test 122 ml/min >60 code = GFR) CREATININE (test code = CREAT) 0.6 mg/dL 0.5-1.0 CALCIUM (test code = CA) 8.5 mg/dL 8.4-10.2 CBC W/AUTO [id number] 05:25:00 Test Item Value Reference Range Comments WHITE BLOOD CELL (test code = WBC) 8.0 K/mm3 6.6-12.1 RED BLOOD CELL (test code = RBC) 4.11 M/mm3 3.45-5.01 HEMOGLOBIN (test code = HGB) 12.9 g/dL 10.7-13.9 HEMATOCRIT (test code = HCT) 38.6 % 32.1-42.1 MEAN CELL VOLUME (test code = MCV) 94 fL 84.1-94.8 MEAN CELL HGB (test code = MCH) 31.4 pg 27-35 MEAN CELL HGB CONCETRATION (test code = MCHC) 33.4 gm/dL 32 .2-34.1 RED CELL DISTRIBUTION WIDTH (test code = RDW) 11.7 % 12 .4-16.5 PLATELET COUNT (test code = PLT) 280 K/mm3 133-385 IMMATURE PLATELET FRACTION (test code = IPF) 0.0 % 0.0 -10.8 MEAN PLATELET VOLUME (test code = MPV) 10.1 fl 9.1-12.7 NEUTROPHIL % (test code = NT%) 87.7 % 56.5-79.4 LYMPHOCYTE % (test code = LY%) 10.8 % 14.3-34.3 MONOCYTE % (test code = MO%) 1.0 % 5.1-10.4 EOSINOPHIL % (test code = EO%) 0.0 % 0.1-3.0 BASOPHIL % (test code = BA%) 0.1 % 0.1-1.0 NEUTROPHIL # (test code = NT#) 7.0 K/mm3 LYMPHOCYTE # (test code = LY#) 0.9 K/mm3 MONOCYTE # (test code = MO#) 0.1 K/mm3 EOSINOPHIL # (test code = EO#) 0 K/mm3 BASOPHIL # (test code = BA#) 0.0 K/mm3 RBC MORPHOLOGY REQUIRED (test code = RBCM) NORMAL SOFI L PLATELET MORPHOLOGY REQUIRED (test code = PLTMR) NORMAL NORMAL CHEMISTRY 7 [id number] 15:18:00 Test Item Value Reference Range Comments SODIUM (test code = NA) 139 mEq/L 135-145 POTASSIUM (test code = K) 4.1 mEq/L 3.5-5.0 CHLORIDE (test code = CL) 102 mEq/L 100-115 CARBON DIOXIDE (test code = CO2) 26 mEq/L 22-31 ANION GAP (test code = GAP) 15.20 10-20 GLUCOSE (test code = GLU) 84 mg/dL 65-110 BLOOD UREA NITROGEN (test code = BUN) 11 mg/dL 7-18 GLOMERULAR FILTRATION RATE (test code = GFR) 150 ml/min >60 CREATININE (test code = CREAT) 0.5 mg/dL 0.5-1.0 CALCIUM (test code = CA) 9.4 mg/dL 8.4-10.2 CBC W/AUTO [id number] 14:54:00 Test Item Value Reference Range Comments WHITE BLOOD CELL (test code = WBC) 9.6 K/mm3 6.6-12.1 RED BLOOD CELL (test code = RBC) 4.57 M/mm3 3.45-5.01 HEMOGLOBIN (test code = HGB) 14.5 g/dL 10.7-13.9 HEMATOCRIT (test code = HCT) 42.9 % 32.1-42.1 MEAN CELL VOLUME (test code = MCV) 94 fL 84.1-94.8 MEAN CELL HGB (test code = MCH) 31.7 pg 27-35 MEAN CELL HGB CONCETRATION (test code = MCHC) 33.8 gm/dL 32 .2-34.1 RED CELL DISTRIBUTION WIDTH (test code = RDW) 12.0 % 12 .4-16.5 PLATELET COUNT (test code = PLT) 307 K/mm3 133-385 IMMATURE PLATELET FRACTION (test code = IPF) 0.0 % 0.0 -10.8 MEAN PLATELET VOLUME (test code = MPV) 9.9 fl 9.1-12.7 NEUTROPHIL % (test code = NT%) 59.2 % 56.5-79.4 LYMPHOCYTE % (test code = LY%) 34.0 % 14.3-34.3 MONOCYTE % (test code = MO%) 5.4 % 5.1-10.4 EOSINOPHIL % (test code = EO%) 0.8 % 0.1-3.0 BASOPHIL % (test code = BA%) 0.4 % 0.1-1.0 NEUTROPHIL # (test code = NT#) 5.7 K/mm3 LYMPHOCYTE # (test code = LY#) 3.3 K/mm3 MONOCYTE # (test code = MO#) 0.5 K/mm3 EOSINOPHIL # (test code = EO#) 0.08 K/mm3 BASOPHIL # (test code = BA#) 0.0 K/mm3 RBC MORPHOLOGY REQUIRED (test code = RBCM) NORMAL SOFI L PLATELET MORPHOLOGY REQUIRED (test code = PLTMR) NORMAL NORMAL UR HCG [id number] 14:47:00 Test Item Value Reference Range Comments UR HCG QUAL (test code = NEGATIVE 1. Very dilute urine specimens, as HCGQLU) indicated by a l owspecific gravity, may not contain strategic partnership representative levels ofhCG. 2. False negative results may occu r when the levels of hCGare below the sensitivity level of the carin t. If is still suspected, a first morningurine spe cimen should be collected 48 esau rs later andtested. PERITONEUM,[id number] 12:17:00 RUN DATE: 11/06/18 [facility] PAGE 1 RUN TIME: 1422 Specimen Inquiry RUN USER: INTERFACE PATIENT: DREA MATHIAS LOC: [facility] U #: [id number] AGE/SX: 23/F ROOM: RE11/02/18[facility] DR: Campbell Allen MD : 93 BED: DIS: STATUS: [facility] TLOC: SPEC #: [id number] RECD: 11/03/18 STATUS: ELIO AUGUSTINE #: [id number] LEE: 11/02/18- SUBM DR: Campbell Allen MD ENTERED: 11/03/18 SP TYPE: PERITBX OTHR DR: ORDERED: LEVEL IV CODES: [id number] - PERITONEUM, NOS PROCEDURES: LEVEL IV (Incomplete) TISSUES: PERITONEUM, NOS - PERITONEUM X6 CLINICAL HISTORY 23 year old, endometriosis (kr) FINAL DIAGNOSIS Presacral nerve, excision: - peripheral nerve with surrounding fibroadipose tissue [...] paratubal cysts Tissue code 1 CPT code(s): 69451, 32809, 26156 x4 [facility] 11/06/18 CONTINUED ON NEXT PAGE RUN DATE: 11/06/18 [facility] PAGE 2 RUN TIME: 1422 Specimen Inquiry RUNUSER: INTERFACE SPEC #: [id number] PATIENT: DREA MATHIAS #[id number] (Continued) GROSS DESCRIPTION ANATOMIC SOURCE OF TISSUE (per Requisition): 1. Presacral nerve 2. Endo curettings 3. Left uterosacral ligament,posterior culdesac, perirectal peritoneum 4. Mid posterior culdesac, perirectal peritoneum withpocket 5. Right uterosacral ligament, posterior culdesac, perirectal peritoneum 6. Bilateralfallopian tubes with rings Each specimen is labeled with the patient's name and medical recordnumber. Specimen #1 is designated "presacral nerve" and consists of a 1.0 x 0.8 x 0.2 cm torre-yellow, cauterized fibrofatty firm tissue, submitted in toto labeled A1. Specimen #2 is designated "endo curettings" and consists of a 2.5 x 1.5 x 0.3 cm aggregate of multiple torre-pink soft tissues admixed with blood-tinged mucoid material and clotted blood, submitted in [...] and 5.5 cm in length. The serosal surfacesare pink-purple and hyperemic with bilateral white, synthetic sterilization rings, 0.6 cm. The lumens are pinpoint. Die Welder sections are submitted labeled F1 - short segment and F2 - long segment. joe 11/03/18 @ 1200 Signed Feli Jerome MD 11/06/18 1217 END OF REPORT RAPID PLASMA [id number] 10:05:00 Test Item Value Reference Range Comments RAPID PLASMA REAGIN (test code = RPR) NON-REACTIVE NON-REACT IS CONSENT FORM SIGNED FOR HIV TESTING? YAG HEPATITIS B [id number] 10:05:00 Test Item Value Reference Range Comments AG HEPATITIS B SURFACE (test code = NON REACTIVE INDEX NonReacti ve HBSAG) IS CONSENT FORM SIGNED FOR HIV TESTING? YAB HEPATITIS C [id number] 10:05:00 Test Item Value Reference Range Comments AB HEPATITIS C (test code = HCVAB) NON REACTIVE INDEX NON REACT. SIGNAL TO CUTOFF (test code = CUTOFF) TEST NOT PERFORMED <0.80 IS CONSENT FORM SIGNED FOR HIV TESTING? YAB HIV 1 10:05:00 Test Item Value Reference Range Comments AB HIV 1 2 (test code = [id number]) NONREACTIVE INDEX NONREACTIVE IS CONSENT FORM SIGNED FOR HIV TESTING? RUTHANN HEPATITIS B [id number] 10:04:00 Test Item Value Reference Range Comments AG HEPATITIS B SURFACE (test code = NON REACTIVE INDEX NonReacti ve HBSAG) IS CONSENT FORM SIGNED FOR HIV TESTING? AZAEL HEPATITIS [id number] 10:04:00 Test Item Value Reference Range Comments AB HEPATITIS C (test code = HCVAB) NON REACTIVE INDEX NON REACT. IS CONSENT FORM SIGNED FOR HIV TESTING? AZAEL HIV 1 10:04:00 Test Item Value Reference Range Comments AB HIV 1 2 (test code = HCX12DS) NONREACTIVE INDEX NONREACTIVE IS CONSENT FORM SIGNED FOR HIV TESTING? YRAPID PLASMA [id number] 09:32:00 Test Item Value Reference Range Comments RAPID PLASMA REAGIN (test code = RPR) NON-REACTIVE NON-REACT IS CONSENT FORM SIGNED FOR HIV TESTING? RUTHANN HEPATITIS B [id number] 09:32:00 Test Item Value Reference Range Comments AG HEPATITIS B SURFACE (test code = NON REACTIVE INDEX NonReacti ve HBSAG) IS CONSENT FORM SIGNED FOR HIV TESTING? AZAEL HEPATITIS C [id number] 09:32:00 Test Item Value Reference Range Comments AB HEPATITIS C (test code = HCVAB) NON REACTIVE INDEX NON REACT. SIGNAL TO CUTOFF (test code = CUTOFF) TEST NOT PERFORMED <0.80 IS CONSENT FORM SIGNED FOR HIV TESTING? AZAEL HIV 1 09:32:00 Test Item Value Reference Range Comments AB HIV 1 2 (test code = [id number]) NONREACTIVE IS CONSENT FORM SIGNED FOR HIV TESTING? RUTHANN HEPATITIS B [id number] 07:31:00 Test Item Value Reference Range Comments AG HEPATITIS B SURFACE (test code = NON REACTIVE INDEX NonReacti ve HBSAG) IS CONSENT FORM SIGNED FOR HIV TESTING? AZAEL HEPATITIS [id number] 07:31:00 Test Item Value Reference Range Comments AB HEPATITIS C (test code = HCVAB) NON REACTIVE INDEX NON REACT. IS CONSENT FORM SIGNED FOR HIV TESTING? AZAEL HIV 1 07:31:00 Test Item Value Reference Range Comments AB HIV 1 2 (test code = [id number]) INDEX NONREACTIVE IS CONSENT FORM SIGNED FOR HIV TESTING? YRAPID PLASMA [id number] 07:31:00 Test Item Value Reference Range Comments RAPID PLASMA REAGIN (test code = RPR) NON-REACTIVE NON-REACT IS CONSENT FORM SIGNED FOR HIV TESTING? YAG HEPATITIS B [id number] 07:31:00 Test Item Value Reference Range Comments AG HEPATITIS B SURFACE (test code = NON REACTIVE INDEX NonReacti ve HBSAG) IS CONSENT FORM SIGNED FOR HIV TESTING? YAB HEPATITIS C [id number] 07:31:00 Test Item Value Reference Range Comments AB HEPATITIS C (test code = HCVAB) INDEX NON REACT. SIGNAL TO CUTOFF (test code = CUTOFF) TEST NOT PERFORMED <0.80 IS CONSENT FORM SIGNED FOR HIV TESTING? YAB HIV 1 07:31:00 Test Item Value Reference Range Comments AB HIV 1 2 (test code = [id number]) NONREACTIVE IS CONSENT FORM SIGNED FOR HIV TESTING? YRAPID PLASMA [id number] 04:51:00 Test Item Value Reference Range Comments RAPID PLASMA REAGIN (test code = RPR) NON-REACTIVE NON-REACT IS CONSENT FORM SIGNED FOR HIV TESTING? YAG HEPATITIS B [id number] 04:51:00 Test Item Value Reference Range Comments AG HEPATITIS B SURFACE (test code = HBSAG) NONRE ACTIVE IS CONSENT FORM SIGNED FOR HIV TESTING? YAB HEPATITIS C [id number] 04:51:00 Test Item Value Reference Range Comments AB HEPATITIS C (test code = HCVAB) NONREACTIVE SIGNAL TO CUTOFF (test code = CUTOFF) TEST NOT PERFORMED <0.80 IS CONSENT FORM SIGNED FOR HIV TESTING? YAB HIV 1 04:51:00 Test Item Value Reference Range Comments AB HIV 1 2 (test code = SYN32JI) NONREACTIVE IS CONSENT FORM SIGNED FOR HIV TESTING? YRAPID PLASMA [id number] 01:51:00 Test Item Value Reference Range Comments RAPID PLASMA REAGIN (test code = RPR) NON-REACTIVE NON-REACT IS CONSENT FORM SIGNED FOR HIV TESTING? YAG HEPATITIS B [id number] 01:51:00 Test Item Value Reference Range Comments AG HEPATITIS B SURFACE (test code = HBSAG) NONRE ACTIVE IS CONSENT FORM SIGNED FOR HIV TESTING? YAB HEPATITIS C [id number] 01:51:00 Test Item Value Reference Range Comments AB HEPATITIS C (test code = HCVAB) NONREACTIVE SIGNAL TO CUTOFF (test code = CUTOFF) <0.80 IS CONSENT FORM SIGNED FOR HIV TESTING? YAB HIV 1 01:51:00 Test Item Value Reference Range Comments AB HIV 1 2 (test code = [id number]) NONREACTIVE IS CONSENT FORM SIGNED FOR HIV TESTING? YCHEMISTRY 7 [id number] 19:02:00 Test Item Value Reference Range Comments SODIUM (test code = NA) 141 mEq/L 135-145 POTASSIUM (test code = K) 4.3 mEq/L 3.5-5.0 CHLORIDE (test code = CL) 105 mEq/L 100-115 CARBON DIOXIDE (test code = CO2) 25 mEq/L 22-31 ANION GAP (test code = GAP) 15.30 10-20 GLUCOSE (test code = GLU) 90 mg/dL 65-110 BLOOD UREA NITROGEN (test code = BUN) 5 mg/dL 7-18 GLOMERULAR FILTRATION RATE (test code = GFR) 150 ml/min >60 CREATININE (test code = CREAT) 0.5 mg/dL 0.5-1.0 CALCIUM (test code = CA) 8.5 mg/dL 8.4-10.2 LIVER [id number] 19:02:00 Test Item Value Reference Range Comments TOTAL PROTEIN (test code = PROT) 6.7 gm/dL 6.3-8.2 ALBUMIN (test code = ALB) 3.4 gm/dL 3.4-4.8 BILIRUBIN TOTAL (test code = BILT) 0.2 mg/dL 0.2-1.0 BILIRUBIN DIRECT (test code = BILD) <0.1 mg/dL <0.2 SGOT/AST (test code = AST) 23 units/L 15-37 SGPT/ALT (test code = ALT) 36 units/L 12-78 ALKALINE PHOSPHATASE TOTAL (test code = ALKP) 41 units/L 46 -116 HCG SERUM [id number] 19:02:00 Test Item Value Reference Range Comments HCG SERUM QUAL (test code = HCGQL) NEGATIVE CHEMISTRY 7 [id number] 18:43:00 Test Item Value Reference Range Comments SODIUM (test code = NA) 141 mEq/L 135-145 POTASSIUM (test code = K) 4.3 mEq/L 3.5-5.0 CHLORIDE (test code = CL) 105 mEq/L 100-115 CARBON DIOXIDE (test code = CO2) 25 mEq/L 22-31 ANION GAP (test code = GAP) 15.30 10-20 GLUCOSE (test code = GLU) 90 mg/dL 65-110 BLOOD UREA NITROGEN (test code = BUN) 5 mg/dL 7-18 GLOMERULAR FILTRATION RATE (test code = GFR) 150 ml/min >60 CREATININE (test code = CREAT) 0.5 mg/dL 0.5-1.0 CALCIUM (test code = CA) 8.5 mg/dL 8.4-10.2 LIVER [id number] 18:43:00 Test Item Value Reference Range Comments TOTAL PROTEIN (test code = PROT) 6.7 gm/dL 6.3-8.2 ALBUMIN (test code = ALB) 3.4 gm/dL 3.4-4.8 BILIRUBIN TOTAL (test code = BILT) 0.2 mg/dL 0.2-1.0 BILIRUBIN DIRECT (test code = BILD) <0.1 mg/dL <0.2 SGOT/AST (test code = AST) 23 units/L 15-37 SGPT/ALT (test code = ALT) 36 units/L 12-78 ALKALINE PHOSPHATASE TOTAL (test code = ALKP) 41 units/L 46 -116 HCG SERUM [id number] 18:43:00 Test Item Value Reference Range Comments HCG SERUM QUAL (test code = HCGQL) PROTHROMBIN [id number] 18:41:00 Test Item Value Reference Range Comments PROTHROMBIN TIME PATIENT (test code = PTP) 11.0 secs 10.4- 12.4 THROMBOPLASTIN TIME [id number] 18:41:00 Test Item Value Reference Range Comments THROMBOPLASTIN TIME PARTIAL (test code = PTT) 27.5 secs 22 -38 CBC W/AUTO [id number] 18:01:00 Test Item Value Reference Range Comments WHITE BLOOD CELL (test code = WBC) 6.7 K/mm3 6.6-12.1 RED BLOOD CELL (test code = RBC) 4.27 M/mm3 3.45-5.01 HEMOGLOBIN (test code = HGB) 13.1 g/dL 10.7-13.9 HEMATOCRIT (test code = HCT) 40.6 % 32.1-42.1 MEAN CELL VOLUME (test code = MCV) 95 fL 84.1-94.8 MEAN CELL HGB (test code = MCH) 30.7 pg 27-35 MEAN CELL HGB CONCETRATION (test code = MCHC) 32.3 gm/dL 32 .2-34.1 RED CELL DISTRIBUTION WIDTH (test code = RDW) 11.9 % 12 .4-16.5 PLATELET COUNT (test code = PLT) 275 K/mm3 133-385 IMMATURE PLATELET FRACTION (test code = IPF) 0.0 % 0.0 -10.8 MEAN PLATELET VOLUME (test code = MPV) 10.7 fl 9.1-12.7 NEUTROPHIL % (test code = NT%) 47.8 % 56.5-79.4 LYMPHOCYTE % (test code = LY%) 41.1 % 14.3-34.3 MONOCYTE % (test code = MO%) 9.2 % 5.1-10.4 EOSINOPHIL % (test code = EO%) 1.2 % 0.1-3.0 BASOPHIL % (test code = BA%) 0.4 % 0.1-1.0 NEUTROPHIL # (test code = NT#) 3.2 K/mm3 LYMPHOCYTE # (test code = LY#) 2.8 K/mm3 MONOCYTE # (test code = MO#) 0.6 K/mm3 EOSINOPHIL # (test code = EO#) 0.08 K/mm3 BASOPHIL # (test code = BA#) 0.0 K/mm3 RBC MORPHOLOGY REQUIRED (test code = RBCM) NORMAL SOFI L PLATELET MORPHOLOGY REQUIRED (test code = PLTMR) NORMAL NORMAL URINALYSIS [id number] 15:43:00 Test Item Value Reference Range Comments UA COLOR (test code = COLU) STRAW YELLOW UA APPEARANCE (test code = APPU) CLEAR CLEAR UA GLUCOSE DIPSTICK (test code = DGLUU) NEGATIVE NEG UA BILIRUBIN DIPSTICK (test code = BILU) NEGATIVE NEG UA KETONE DIPSTICK (test code = KETU) NEGATIVE NEG UA SPECIFIC GRAVITY (test code = SGU) 1.006 1.001-1.03 5 UA BLOOD DIPSTICK (test code = HAYLEY) NEG NEG UA PH DIPSTICK (test code = DWIGHT) 8.0 5-9 UA PROTEIN DIPSTICK (test code = PROU) NEGATIVE NEG UA UROBILINIOGEN DIPSTICK (test code = URO) NEGATIVE mg/dL NEG UA NITRITE DIPSTICK (test code = ARIAS) NEG NEG UA LEUKOCYTE ESTERASE DIPSTICK (test code = NEG NEG LEUU) UA WBC (test code = WBCU) 0-2 #/hpf NONE SEEN UA RBC (test code = RBCU) 0-2 #/hpf NONE SEEN UA EPITHELIAL CELLS (test code = EPIU) RARE #/HPF RARE-FEW UA MUCUS (test code = MUCU) RARE NONE SEEN URINE SAMPLE: CLEAN CATCH
--- OUTSIDE RECORDS SUMMARY | 2019-08-22 23:50 | XMS REPORT | Summary of Care ---
:1995 Author Organization [facility] Address [address] [place] [address] Care Team Providers Name Role Phone Terra Addison Primary Care Provider Reason for Referral (Routine) Status Reason Specialty Diagnoses / Referred By Referred To Procedures Contact Contact New Request Electroneurodiagnostic Diagnoses Right wrist pain Keon, Emg/Ncv Procedures EMGNCV Benitez Reno MD Procedures-Jsa [address] [facility] 8.144 [id number] [address] Phone: [place], [place] [phone] Fax: (Routine) Status Reason Specialty Diagnoses / Referred By Referred To Procedures Contact Contact New Request Occupational Diagnoses Right wrist pain Keon, Therapy Procedures CONSULT ADULT OCCUPATIONAL THERAPY Benitez Reno MD [address] [place], [place] [address] [place] [address] Radiology Services (Routine) Status Reason Specialty Diagnoses / Referred By Referred To Procedures Contact Contact New Request Diagnostic Diagnoses Right wrist pain Keon, Radiology Procedures XR HAND 3+ VW BILATERAL Benitez Reno MD [address] [place], [place] [address] [place] [address] Reason for Visit Reason Comments New Patient Right wrist pain Establish Care (JONAS) Status Reason Specialty Diagnoses / Referred By Referred To Procedures Contact Contact Pending Review Rheumatology Diagnoses Right wrist pain Jr Lockett Procedures CONSULT/REFERRAL RHEUMATOLOGY MD Marylou [address] [address] Encounter Details Date Type Department Care Team Description 06/11/2019 Office Visit [facility] Benitez Herbert Right wrist pain (Primary Dx); Rheumatology-Paulino Reno MD Former smoker; [facility] [address] History of endometriosis; [address] [facility] [id number] History of hysterectomy; [place], [place], [place] History of tubal ligation; [id number] Family history of rheumatoid arthritis [phone] Allergies No Known Allergiesdocumented as of this encounter (statuses as of 06/11/2019) Medications Medication Sig Dispensed Refills Start Date End Date Status naproxen 375 mg Take 1 tablet by 60 tablet 1 06/07/2019 Active tabletIndications: mouth 2 (two) times Right wrist pain daily with meals. acetaminophen-codeine 1/2 - 1 tab Every 10 tablet 0 06/07/2019 Active 300-30 mg 4hrs as needed for tabletIndications: pain or cough Right wrist pain requiring narcotic documented as of this encounter (statuses as of 06/11/2019) Active Problems Problem Noted Date 33 weeks gestation of 09/08/2015 Premature labor 09/08/2015 30 weeks gestation of 08/13/2015 Premature uterine contractions causing threatened alexys ature labor, 08/13/2015 antepartum Premature uterine contractions causing threatened alexys ature labor 08/13/2015 documented as of this encounter (statuses as of 06/11/2019) Social History Tobacco Use Types Packs/Day Years [...] Sign Reading Time Taken Comments Blood Pressure 104/68 06/11/2019 2:47 PM CLUTCH INSPECTOR Pulse 86 06/11/2019 2:47 PM CLUTCH INSPECTOR Temperature 37 C (98.6 F) 06/11/2019 2:44 PM CLUTCH INSPECTOR Respiratory Rate 20 06/11/2019 2:44 PM CLUTCH INSPECTOR Oxygen Saturation 99% 06/11/2019 2:44 PM CLUTCH INSPECTOR Inhaled Oxygen Concentration - - Weight 58 kg (127 lb 12.8 oz) 06/11/2019 2:44 PM CLUTCH INSPECTOR Height 151.1 cm (4' 11.5") 06/11/2019 2:44 PM CLUTCH INSPECTOR Body Mass Index 25.38 06/11/2019 2:44 PM CLUTCH INSPECTOR documented in this encounter Patient Instructions Patient InstructionsDevan Joiner MD - 06/11/2019 2:20 PM CSTPlease get the labs done Please get the imaging done Please get EMG/NCV done Please continue taking Naproxen 375 mg OTC po BID prn pain If on Naproxen daily, please consider OTC PPI such as Prilosec 20 mg po Qdaily or Pepcid 20 mg po BID Please follow up with Occupational Therapy (for custom made Rt wrist and Thumb support splint) and PCP Rtc PRN CH INSPECTOR documented in this encounter Progress Notes Mallorie Caballero MA - 06/11/2019 2:20 PM CST Abby Uribe is a 23 year old female Chief Complaint Patient presents with New Patient Right wrist pain Establish Care CH INSPECTOR Benitez Herbert MD - 06/11/2019 2:20 PM CSTFebruary [address] Joiner, I interviewed and examined the patient with Dr. Joiner today in the clinic. Abby Uribe is a 23 year old white female from [place], a new patient. She is here referred by family medicine because of right wrist pain, present for the last couple of weeks although by history this has been a recurrent problem, she says. In addition, she has had some polyarthralgiasaffecting her right shoulder, elbow, and right ankle, off and on, not daily. She denies doing any kind of specific physical activity; however, works on her computer for as long as one hour, she says. She denies lupus signs and symptoms, uveitis, sausage digits, bloody diarrhea, Achilles' tendinitis, ca rpal tunnel syndrome, etc. PMH: endometriosis, under ALLIANCES CONSULTANT care. She is a former smoker. She is S/P tubal ligation, hysterectomy, tonsillectomy, and D&C. She still has her ovaries, she says. FH: a maternal grandmother has RA. There is no history of psoriasis or PsA in the family. Medications: Tylenol # 3, not really taken, low estrogen oral contraceptive, and naproxen, 375 mg PO BID, prn, pain. HerUTMB labs are old, from 2016: normal CBC and CMP then. A uric acid was 2.5 mg/dl then, why order this test? She had mor recent testing in 209 with normal CBC and CMP, TSH, etc. However, we don't have Kenyetta factor, an anti-CCP, a CRP, a vitamin D level, etc. At first, an PATRICIA was positive, she says, later negative. PE: there is no synovitis, acutely swollen joints, skin rashes, Raynaud's, butterfly rash, parotid enlargement, etc. Her fist making is 100%. A Colten maneuver is basically negative. She hurts deep in the middle of the thenar eminence, and on the dorsal aspect of the wrist. Her lungs are clear. Idoubt she has a systemic inflammatory disease, like RA or lupus. I suspect her right wrist pain is mechanical in nature, as explained. Today, we are ordering a CRP, a RA factor, an anti-CCP, an PATRICIA, a hep C screen, and a vitamin D level. In addition, we are x-raying both hands and wrists. Therapeutically, we are continuing the PRN naproxen. Here, I recommended adding either Pepcid, or omeprazole OTC,if she starts taking the naproxen daily. In addition, we are ordering a NCV, to exclude a component of carpal tunnel syndrome. Finally, we are referring her to OT for a support wrist and thumb splint. The potential medication side effects were discussed, including renal and liver dysfunction, HTN, GI ulceration and bleeding, fluid retention, etc. I agree with Dr. Joiner's impressions & recommendations, as written. CH INSPECTOR Devan Joiner MD - 06/11/2019 2:20 PM CST Rheumatology Progress Note Abby Uribe DOS: 06/11/19 DIANNE: CC: New [facility] outpt consult requested by Jr Kebede for "Recurrent joint pain. Current right wrist. Lupus testing positive then negative. Several joints at various times." HPI: Patient is a 23 year old /White female presenting to clinic today as a new patient with c/oRt thumb and wrist pain since so a couple of days. Says it comes and goes. Says all joint of Rt side of the body hurt too. Ankle, knee , shoulder. Pt is Rt handed Denies pins and needles in index finger or middle finger. Says driving and holding a cup of coffee hurts . Denies repetitive movement and denies trauma. Woks on computer and takes school notes. Has 2 children Thu negative Smoking : Former smoker Paternal grandma has OA, maternal grandma has RA, mom has arthritis Denies h/o PsA or HISTORY: Past Medical History: Diagnosis Date Endometriosis Right wrist pain Past Surgical History: Procedure Laterality Date DILATION AND CURETTAGE (SHX) HYSTERECTOMY TONSILLECTOMY TUBAL LIGATION Family History Problem Relation Age of Onset Arthritis Mother RA (Rheumatoid arthritis) Maternal Grandmother Arthritis Paternal Grandmother Social History Tobacco Use Smoking Status Former Smoker Smokeless Tobacco Never Used Social History Substance and Sexual Activity Alcohol Use Not on file Social History Substance and Sexual Activity Drug Use Not on file Social History Social History Narrative Not on file Current Outpatient Medications Medication Sig Dispense Refill acetaminophen-codeine 300-30 mg tablet 1/2 - 1 tab Every 4hrs as needed for pain or cough requiring narcotic 10 tablet 0 naproxen 375 mg tablet Take 1 tablet by mouth 2 (two) times daily with meals. 60 tablet 1 No current facility-administered medications for this visit. REVIEW OF SYSTEMS: Constitutional: negative HEENT: negative Cardiovascular: negative Respiratory: negative Genitourinary: negative Musculoskeletal: negative Skin: negative Neuro: negative Endo: negative Hemat: negative PHYSICAL EXAM: BP 104/68 | Pulse 86 | Temp 37 C (98.6 F) (Oral) | Resp 20 | Ht 4' 11.5" (1.511 m) | Wt 127lb 12.8 oz (58 kg) | LMP (LMP Unknown) | SpO2 99% | BMI 25.38 kg/m GENERAL: alert, oriented times three, in no apparent distress, well developed, well nourished. Tender points: negative SKIN: no rashes EYES: anicteric sclera, pupils are equally round and reactive to light, extraocular movements are intact. HEENT: within normal limits, no lymphadenopathy, no parotid enlargement, no TA nodules or swelling NECK: within normal limits, no lymphadenopathy, C-spine with FROM. LUNGS: clear without wheezes or crackles. HEART: normal, regular rate and rhythm, S1 - S2 , no murmurs, gallops, clicks or rubs. NEUROMUSCULAR: No muscular weakness proximally or distally. Patient is able to walk on tip of toes and heels. Patient is able to squat and rise without difficulty. Ambulation appears to be well preserved. EXTREMITIES - SHOULDER: no swelling, tenderness, instability, deformity; normal range of motion ELBOW: no swelling, tenderness, subcutaneous nodules, tophi, or deformity; normal range of motion HAND/FINGER: no synovitis, good fist making, good vb net developer strength, normal range of motion, no digital ischemia, no Raynaud's WRIST: normal range of motion, no synovitis, normal ulnar styloids HIP: no tenderness, normal range of motion KNEE: no swelling, tenderness, instability or deformity; normal range of motion LOWER LEG: no peripheral edema. Labs: Outside labs: 12/2018 :cbc wnl, BMP wnl, Urinalysis p- b- RBC 0-2WNL RPR NR, HIV NR, HCV AB-, HBsAg-, HBcAB-, 2017: TSH 1.13, CMP WNL 2016: CBC WBC 12.20, Uric acid 2.5 ASSESSMENT: ICD-10-CM ICD-9-CM 1. Right wrist pain M25.531 719.43 2. Former smoker Z87.891 V15.82 3. History of endometriosis Z87.42 V13.29 4. History of hysterectomy Z90.710 V88.01 5. History of tubal ligation Z98.51 V26.51 6. Family history of rheumatoid arthritis Z82.61 V17.7 Right wrist pain (primary encounter diagnosis) Family h/o RA in maternal grandmother History of positive PATRICIA as per pt Comment: 23 year old /White female presenting to clinic today as a new patient with c/o Rt thumb and wrist pain since so a couple of days. Says it comes and goes. Says all joint of Rtside of the body hurt too. Ankle, knee , shoulder. Pt is Rt handed. Denies any ankle swelling or any joint swelling Denies pins and needles in index finger or middle finger. Says driving and holding a cup of coffee hurts . Denies repetitive movement and denies trauma. Woks on computer and takes school notes. Has 2 children Denies rash, bloody BM, swollen toe, no uveitis, enthesitis Paternal grandma has OA, maternal grandma has RA, mom has arthritis Denies h/o PsA or Finkelsteins negative, No synovitis No LAD, no parotid swelling ROM normal Plan: XR HAND 3+ VW BILATERAL, CONSULT ADULT OCCUPATIONAL THERAPY for Rt wrist and thumb pain. To evaluate for custom made Right wristand thumb support splint HCV ANTIBODY, CYCLIC CITRULLINATED PEPTIDE, C-REACTIVE PROTEIN, VITAMIN D, 25-OH, RHEUMATOID FACTOR, ANTI-NUCLEAR ANTIBODY SCREEN EMG/NCV to rule out CTS Pt takes Naproxen 375 OTC prn pain. Ok to take 2 pills Qdaily prn pain If need Naproxen daily, then please add Pepcid 20 mg po BID or Prilosec 20 mg po Qd *If all test negative, then we will refer the patient to the hand surgeon. If test positive, will follow up with the patient and add more test/treatment Former smoker Comment: continue with smoking cessation Plan: Smoking cessation H/o Endometriosis s/p Hysterectomy S/p tubal ligation Comment: Still has her ovaries Says takes control pills Plan: As per Vending Supervisor. Recommend discussing with OBGYN to discuss of possible to avoid estrogen containing OCP and see if progesterone based OCPs are an option instead My diagnostic impression and treatment plans were discussed patient. Rtc PRN Pt seen with Dr. Keon Joiner MD , MPH PGY-5, Rheumatology Fellow- Year 1 06/11/2019 2:31 PM Pager: [phone] documented in this encounter Plan of Treatment Date Type Specialty Care Team Description 06/12/2019 Ancillary Visit Occupational Therapy J Carlos Cadena, OT [address] [place] [id number] Name Type Priority Associated Diagnoses Order S chedule XR HAND 3+ VW BILATERAL IMAGING Routine Right wrist pain Expected: 06/11/2019, Expires: 2020 HCV ANTIBODY LAB Routine Right wrist pain Ordered: CYCLIC CITRULLINATED LAB Routine Right wrist pain Ord ered: 06/11/2019 PEPTIDE C-REACTIVE PROTEIN LAB Routine Right wrist pain Order ed: 06/11/2019 VITAMIN D, 25-OH LAB Routine Right wrist pain Ordered : 06/11/2019 RHEUMATOID FACTOR LAB Routine Right wrist pain Ordere d: 06/11/2019 ANTI-NUCLEAR ANTIBODY LAB Routine Right wrist pain Or dered: 06/11/2019 SCREEN EMGNCV EMG Routine Right wrist pain Expected: 0 06/11/2019, Expires: 2019 Health Maintenance Due Date Last Done Comments VARICELLA VACCINES (1 of 2 - 1994 2-dose childhood series) [...] pain - Primary Pain in joint, forearm Former smoker Personal history of tobacco use, present ing hazards to health History of endometriosis Personal history of other genital system and obstetric disorders History of hysterectomy Acquired absence of both cervix and uter us History of tubal ligation Tubal ligation status Family history of rheumatoid arthritis Family history of arthritis documented in this encounter documented as of this encounter
--- OUTSIDE RECORDS SUMMARY | 2019-08-22 23:50 | XMS REPORT | Summary of Care ---
:1995 Author Organization [facility] Address [address] [place] [address] Care Team Providers Name Role Phone Cyn Terra Primary Care Provider Reason for Referral (Routine) Status Reason Specialty Diagnoses / Referred By Referred To Procedures Contact Contact Authorized Orthopedic Surgery Diagnoses Right wrist pain Keon, Procedures CONSULT ORTHOPAEDIC SURGERY Benitez Reno MD [address] [place], [place] [id number] [place] [id number] (Routine) Status Reason Specialty Diagnoses / Referred By Referred To Procedures Contact Contact New Request Electroneurodiagnostic Diagnoses Right wrist pain Keon, Emg/Ncv Procedures EMGNCV Benitez Reno MD Procedures-Jsa [address] [place] [address] [id number] [address] Phone: [place], [place] [phone] Fax: Reason for Visit Reason Comments Results Encounter Details Date Type Department Care Team Description 06/20/2019 Telephone [facility] Benitez Herbert MD Results Rheumatology-[address] [id number] [facility] [address] [phone] [place], [place] [phone] Allergies No Known Allergiesdocumented as of this encounter (statuses as of 06/21/2019) Medications Medication Sig Dispensed Refills Start Date [...] as of this encounter (statuses as of 06/21/2019) Active Problems Problem Noted Date Pain of right hand 06/12/2019 Pain in both wrists 06/12/2019 Decreased activities of daily living (ADL) 06/12/2019 33 weeks gestation of 09/08/2015 Premature labor 09/08/2015 30 weeks gestation of 08/13/2015 Premature uterine contractions causing threatened alexys ature labor, 08/13/2015 antepartum Premature uterine contractions causing threatened alexys ature labor 08/13/2015 documented as of this encounter (statuses as of 06/21/2019) Social History Tobacco Use Types Packs/Day Years [...] filedocumented in this encounter Plan of Treatment Date Type Specialty Care Team Description 06/25/2019 Office Visit Orthopedic Surgery Dayron Scanlon, DARRIUS [address], [place] [phone] 06/26/2019 Ancillary Visit Occupational Therapy Terra Hannah MD [address] [place] [address] Patricio Cadena, [address] [address] Name Type Priority Associated Diagnoses Order S chedule EMGNCV EMG Routine Right wrist pain 1 Occurrenc es starting 06/20/2019 until 12/24/2019 Health Maintenance Due Date Last Done Comments [...] in joint, forearm documented in this encounter Insurance Payer Benefit Plan / Group Subscriber ID Effective Dates Phone Address Type AETNA AETNA O [id number] 2016-Present [place] documented as of this encounter
--- OUTSIDE RECORDS SUMMARY | 2019-08-22 23:50 | XMS REPORT | Summary of Care ---
:1995 Author Organization [facility] Address [address] [place] [address] Care Team Providers Name Role Phone Terra Addison Primary Care Provider Reason for Visit Reason Comments Evaluation Treatment (Routine) Status Reason Specialty Diagnoses / Referred By Referred To Procedures Contact Contact Authorized Occupational Diagnoses Right wrist pain Chrissy Herbert Procedures CONSULT ADULT OCCUPATIONAL THERAPY HI OCCUPATIONAL THERAPY EVAL LOW COMPLEX 30 MINS HI OCCUPATIONAL THERAPY EVAL MOD COMPLEX 45 MINS HI OCCUPATIONAL THERAPY EVAL HIGH COMPLEX 60 MINS HI THERAPEUTIC EXERCISES Benitez Reno MD HI NEUROMUSC REE DUCAT,1+ AREAS, EA 15 MIN HI MANUAL THER TECH,1+REGIONS,EA 15 MIN HI THERAPEUT ACTVITY DIRECT PT CONTACT EACH 15 MIN HI SELF-CARE/HOME MGMT TRAINING EACH [address] [place], [place] [id number] [place] [address] Encounter Details Date Type Department Care Team Description 06/12/2019 Ancillary Visit [facility] Benjamin Hannah MD [address] [place] [address] Pain of right hand (Primary Dx); Occupational Therapy- Patricio Cadena, OT [address] [place] [address] Pain in both wrists; [place] Decreased activities of rian y living (ADL) 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 [place] [address] Allergies No Known Allergiesdocumented as of this encounter (statuses as of 06/15/2019) Medications Medication Sig Dispensed Refills Start Date [...] as of this encounter (statuses as of 06/15/2019) Active Problems Problem Noted Date Pain of right hand 06/12/2019 Pain in both wrists 06/12/2019 Decreased activities of daily living (ADL) 06/12/2019 33 weeks gestation of 09/08/2015 Premature labor 09/08/2015 30 weeks gestation of 08/13/2015 Premature uterine contractions causing threatened alexys ature labor, 08/13/2015 antepartum Premature uterine contractions causing threatened alexys ature labor 08/13/2015 documented as of this encounter (statuses as of 06/15/2019) Social History Tobacco Use Types Packs/Day Years Used Date Former Smoker Smokeless Tobacco: Never Used Sex Assigned at Date Recorded Not on file Job Start Date Occupation Industry Not on file Not on file Not on file Travel History Travel Start Travel End No recent travel history available. documented as of this encounter Last Filed Vital Signs Not on filedocumented in this encounter Progress Notes Patricio Cadena, OT - 06/12/2019 1:45 PM CST Initial Evaluation Date: June 12, 2019 Diagnosis: 1. Pain of right hand 2. Pain in both wrists 3. Decreased activities of daily living (ADL) Visit Number: 1 Date of onset: October 2018 History of Condition:Pt presents with c/o sharp pain in R wrist and thumb base region, and also reports recent onset of L wrist pain that she feels, L and R wrist, may be from over compensating for R thumb pain. She reports pain is worse at night time and in mornings. No numbness or tingling is reported or noted. Knowledge of condition: Fair Quality of life: Good Prior therapy: Yes - PT for hips Patient Goals: Goals None Past Medical History: Diagnosis Date Endometriosis Right wrist pain Past Surgical History: Procedure Laterality Date DILATION AND CURETTAGE (SHX) HYSTERECTOMY TONSILLECTOMY TUBAL LIGATION Pain assessment: Pain Assessment Pain Assessment: 0-10 Pain Score: 4 Post-Treatment Pain Score: 5 - Moderate pain Pain Location: (R thumb base region and wrist region (volar and dorsal)) Objective: Outpatient OT Evaluation Row Name 06/12/19 1345 General Visit Number 1 Chart Reviewed Yes Pain Assessment Pain Assessment 0-10 Pain Score 4 Post-Treatment Pain Score 5 - Moderate pain Pain Location R thumb base region and wrist region (volar and dorsal) Prior Function Level of [place] Independent with ADLs and functional transfers;Independent with homemaking with ambulation 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 Orthotic training Range of Motion Activity modifications Hot/cold modalities General Assessments: Modified Phalen's: R (-), L (-), Tinel's: R (-), L (-) Treatment: See Outpatient OT Treatment Flowsheet Educated on Orthotic training, AROM, activity modifications, hot/cold modalities. Assessment: Pt presents with intermittent pain primarily noted at the R thumb base region, in which she indicated by pointing to locations of the scaphoid carpal bone (just proximal to the volarlateralportion of the thumb CMCj and anatomical snuff box region, though she denied recent falls. Also, perEPIC review, xray imaging interpretation did not indicate any bone abnormalities. Given these findings she may benefit further assessment to rule out other possible tissue injury at this region. Hand based short opponens orthosis fabricated for pain management, but if patient continues to have pain inR wrist, may consider need for radial thumb spica to include wrist, however, prefer to not immobilize wrist if possible. Pt may benefit from f/u in ~2-4 weeks for improved functional outcome, will assess at this time for further needs, possible orthosis that provides wrist immobilization. Main focus of pain management at this time. 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 Short Term Goals: To be met in 4 visits: 1. Patient will will report < 2 out of 10 pain score right hand in order to participate in ADL/home exercise program. Consultant Dietitian Goals: 1. Patient will demonstrate improved right UE functional use as evidenced by ability to complete ADLs from without pain by discharge. Plan of Care Patient agrees with the plan of care Pt return in 2-4 weeks, 1x/week for up to 4 additional visits Functional motor treatment Modalities Patient/Caregiver education Therapeutic exercises Orthotic training/monitoring/adjustments I have discussed the risks and benefits of the above plan with Abby Guy Royn. She is aware of the diagnosis and potential to improve. She participated in the setting of the goals and understands the importance of complying with the treatment plan, including home instruction. She agreed to the above frequency and duration of rehab services. Patient- Family Teaching: Patient provided with preferred teaching of verbal information and demonstration on Orthotic training, AROM, activity modifications, hot/cold modalities. Shows readiness to learn. Verbal instruction teaching provided. Individual is able to read and verbalizes understanding of teaching provided. PHIL Bailon, [facility] Occupational Therapy License #[id number] [place] Department of Rehabilitation Services M-W- at [facility] T-Th at [facility] E COUNTER documented in this encounter Plan of Treatment Date Type Specialty Care Team Description 06/26/2019 Ancillary Visit Occupational Therapy Terra Hannah MD [address] [place] [address] Patricio Cadena OT [address] [place] [address] Health Maintenance Due Date Last Done Comments [...] filedocumented in this encounter Visit Diagnoses Diagnosis Pain of right hand - Primary Pain in limb Pain in both wrists Pain in joint, forearm Decreased activities of daily living (AD L) documented in this encounter documented as of this encounter
--- OUTSIDE RECORDS SUMMARY | 2019-08-22 23:50 | XMS REPORT | Summary of Care ---
:1995 Author Organization [facility] Address [address] [place] [address] Care Team Providers Name Role Phone Terra Addison Primary Care Provider Reason for Referral (Routine) Status Reason Specialty Diagnoses / Referred By Referred To Procedures Contact Contact New Request Electroneurodiagnostic Diagnoses Right wrist pain Keon, Emg/Ncv Procedures EMGNCV Benitez Reno MD Procedures-Jsa 301 [facility] 8.144 [id number] [address] Phone: [place], [place] [phone] [address] Fax: (Routine) Status Reason Specialty Diagnoses / Referred By Referred To Procedures Contact Contact New Request Occupational Diagnoses Right wrist pain Keon, Therapy Procedures CONSULT ADULT OCCUPATIONAL THERAPY Benitez Reno MD [address] [place], [place] [address] [place] [address] Radiology Services (Routine) Status Reason Specialty Diagnoses / Referred By Referred To Procedures Contact Contact New Request Diagnostic Diagnoses Right wrist pain Keon, Radiology Procedures XR HAND 3+ VW BILATERAL Benitez Reno MD [address] [place], [place] [address] [place] [address] Reason for Visit Reason Comments New Patient Right wrist pain Establish Care (JONAS) Status Reason Specialty Diagnoses / Referred By Referred To Procedures Contact Contact Pending Review Rheumatology Diagnoses Right wrist pain Jr Lockett Procedures CONSULT/REFERRAL RHEUMATOLOGY MD Marlyou [address] [address] Encounter Details Date Type Department Care Team Description 06/11/2019 Office Visit [facility] Benitez Herbert Right wrist pain (Primary Dx); Rheumatology-Paulino Reno MD Former smoker; [facility] [address] History of endometriosis; [address] [facility] [id number] History of hysterectomy; [place], [place], [place] History of tubal ligation; [phone] Family history of rheumatoid arthritis [phone] Allergies No Known Allergiesdocumented as of this [...] Comments Blood Pressure 104/68 06/11/2019 2:47 PM DIE EQUIPMENT OPERATOR Pulse 86 06/11/2019 2:47 PM DIE EQUIPMENT OPERATOR Temperature 37 C (98.6 F) 06/11/2019 2:44 PM DIE EQUIPMENT OPERATOR Respiratory Rate 20 06/11/2019 2:44 PM DIE EQUIPMENT OPERATOR Oxygen Saturation 99% 06/11/2019 2:44 PM DIE EQUIPMENT OPERATOR Inhaled Oxygen Concentration - - Weight 58 kg (127 lb 12.8 oz) 06/11/2019 2:44 PM DIE EQUIPMENT OPERATOR Height 151.1 cm (4' 11.5") 06/11/2019 2:44 PM DIE EQUIPMENT OPERATOR Body Mass Index 25.38 06/11/2019 2:44 PM DIE EQUIPMENT OPERATOR documented in this encounter Patient Instructions Patient [...] Thumb support splint) and PCP Rtc PRN EQUIPMENT OPERATOR documented in this encounter Progress Notes Mallorie Caballero MA - 06/11/2019 2:20 PM CST Abby Uribe is a 23 year old female Chief Complaint Patient presents with New Patient Right wrist pain Establish Care EQUIPMENT OPERATOR Benitez Herbert MD - 06/11/2019 2:20 PM CSTFebruary [address] Joiner, I interviewed and examined the patient with Dr. Joiner today in the clinic. Abby Uribe is a 23 year old white female from [place], a new patient. She is here referred [...] rpal tunnel syndrome, etc. PMH: endometriosis, under NON LINEAR EDITOR care. She is a former smoker. She [...] Dr. Joiner's impressions & recommendations, as written. EQUIPMENT OPERATOR Devan Joiner MD - 06/11/2019 2:20 PM CST Rheumatology Progress Note Abby Uribe DOS: 06/11/19 DIANNE: CC: New [facility] outpt consult requested by Jr Kebede for [...] HAND/FINGER: no synovitis, good fist making, good travel money advisor strength, normal range of motion, no digital [...] Says takes control pills Plan: As per Boat Deckhand. Recommend discussing with OBGYN to discuss of possible to avoid estrogen containing OCP and see if progesterone based OCPs are an option instead My diagnostic impression and treatment plans were discussed patient. Rtc PRN Pt seen with Dr. Keon Joiner MD , MPH PGY-5, Rheumatology Fellow- Year 1 06/11/2019 2:31 PM Pager: [phone] documented in this encounter Plan of Treatment Date Type Specialty Care Team Description 06/12/2019 Ancillary Visit Occupational Therapy J Carlos Cadena, OT [address] [place] [address] Name Type Priority Associated Diagnoses Order S [...]
--- OUTSIDE RECORDS SUMMARY | 2019-08-22 23:50 | XMS REPORT | Summary of Care ---
:1993 Author Organization [facility] Address [address] [place] [address] Care Team Providers Name Role Phone Terra Addison Primary Care Provider Reason for Visit Reason Comments LAB WORK Encounter Details Date Type Department Care Team Description 06/11/2019 Director Apparel Visit [facility] Chloe Herbert MD [address] [place], [place] [id number] [place], [place] [phone] Right wrist pain PHLEBOTOMY/LAB Vls-Lab [address] [facility] [address] [place] [phone] Allergies No Known Allergiesdocumented as of this [...] Treatment Date Type Specialty Care Team Description 06/11/2019 Hospital Encounter Radiology Charla Herbert MD Arrived 301 [facility] [address]59 [place], [place] [address] 06/12/2019 Ancillary Visit Occupational Therapy Patricio Cadena, OT [address] [place] [address] Health Maintenance Due Date Last Done Comments [...] encounter Visit Diagnoses Diagnosis Right wrist pain Pain in joint, forearm documented in this encounter documented as of this encounter
--- OUTSIDE RECORDS SUMMARY | 2019-08-22 23:50 | XMS REPORT | Summary of Care ---
:1993 Author Organization [facility] Address [address] [place] [address] Care Team Providers Name Role Phone Orionivorylidya Terra Primary Care Provider Reason for Referral (Routine) Status Reason Specialty Diagnoses / Referred By Referred To Procedures Contact Contact New Request Orthopedic Surgery Diagnoses Right wrist pain Keon, Procedures CONSULT ORTHOPAEDIC SURGERY Benitez Reno MD [address] [place], [place] [id number] [place] [id number] (Routine) Status Reason Specialty Diagnoses / Referred By Referred To Procedures Contact Contact New Request Electroneurodiagnostic Diagnoses Right wrist pain Keon, Emg/Ncv Procedures EMGNCV Benitez Reno MD Procedures-Jsa 301 [facility] 8.144 [facility] [address] Phone: [place], [place] [phone] [address] Fax: Reason for Visit Reason Comments Results Encounter Details Date Type Department Care Team Description 06/20/2019 Telephone [facility] Benitez Herbert MD Results Rheumatology-[address] [id number] [facility] [address] [phone] [place], [place] [address] [phone] Allergies No Known Allergiesdocumented as of this encounter (statuses as of 06/20/2019) Medications Medication Sig Dispensed Refills Start Date [...] as of this encounter (statuses as of 06/20/2019) Active Problems Problem Noted Date Pain of right hand 06/12/2019 Pain in both wrists 06/12/2019 Decreased activities of daily living (ADL) 06/12/2019 33 weeks gestation of 09/08/2015 Premature labor 09/08/2015 30 weeks gestation of 08/13/2015 Premature uterine contractions causing threatened alexys ature labor, 08/13/2015 antepartum Premature uterine contractions causing threatened alexys ature labor 08/13/2015 documented as of this encounter (statuses as of 06/20/2019) Social History Tobacco Use Types Packs/Day Years [...] Ancillary Visit Occupational Therapy Terra Hannah MD [address] [place] [address] Patricio Cadena, [address] [address] Name Type Priority Associated Diagnoses Order S [...] Subscriber ID Effective Dates Phone Address Type [facility]IGRETNÉSTRO [facility] [id number] 2016-Present [place] documented as of this encounter
--- OUTSIDE RECORDS SUMMARY | 2019-08-22 23:50 | XMS REPORT | Summary of Care ---
:1993 Author Organization [facility] Address [address] [place] [address] Care Team Providers Name Role Phone Terra Addison Primary Care Provider Reason for Visit Reason Comments Evaluation Treatment (Routine) Status Reason Specialty Diagnoses / Referred By Referred To Procedures Contact Contact Authorized Occupational Diagnoses Right wrist pain Chrissy Herbert Procedures CONSULT ADULT OCCUPATIONAL THERAPY IA OCCUPATIONAL THERAPY EVAL LOW COMPLEX 30 MINS IA OCCUPATIONAL THERAPY EVAL MOD COMPLEX 45 MINS IA OCCUPATIONAL THERAPY EVAL HIGH COMPLEX 60 MINS IA THERAPEUTIC EXERCISES Benitez Reno MD IA NEUROMUSC REE DUCAT,1+ AREAS, EA 15 MIN IA MANUAL THER TECH,1+REGIONS,EA 15 MIN IA THERAPEUT ACTVITY DIRECT PT CONTACT EACH 15 MIN IA SELF-CARE/HOME MGMT TRAINING EACH [address] [place], [place] [id number] [place] [address] Encounter Details Date Type Department Care Team Description 06/12/2019 Ancillary Visit [facility] Benjamin Hannah MD [address] [place] [address] Pain of right hand (Primary Dx); Occupational Therapy- Patricio Cadena, OT [address] [place] [address] Pain in both wrists; [place] Decreased activities of rian y living (ADL) 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 [place] [address] Allergies No Known Allergiesdocumented as of this encounter (statuses as of 06/12/2019) Medications Medication Sig Dispensed Refills Start Date [...] as of this encounter (statuses as of 06/12/2019) Active Problems Problem Noted Date Pain of right hand 06/12/2019 Pain in both wrists 06/12/2019 Decreased activities of daily living (ADL) 06/12/2019 33 weeks gestation of 09/08/2015 Premature labor 09/08/2015 30 weeks gestation of 08/13/2015 Premature uterine contractions causing threatened alexys ature labor, 08/13/2015 antepartum Premature uterine contractions causing threatened alexys ature labor 08/13/2015 documented as of this encounter (statuses as of 06/12/2019) Social History Tobacco Use Types Packs/Day Years [...] (volar and dorsal) Prior Function Level of [place] Independent with ADLs and functional transfers;Independent with [...] Barriers to goal achievement: 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 Short Term Goals: To be met in 4 visits: 1. Patient will will report < 2 out of 10 pain score right hand in order to participate in ADL/home exercise program. Gospel Worker Goals: 1. Patient will demonstrate improved right [...] benefits of the above plan with Abby Uribe. She is aware of the diagnosis and [...] verbalizes understanding of teaching provided. PHIL Bailon, [facility] Occupational Therapy License #[id number] [facility] Department of Rehabilitation Services M-W- at [facility] T-Th at [facility] ATIC TEACHER documented in this encounter Plan of Treatment Date Type Specialty Care Team Description 06/26/2019 Ancillary Visit Occupational Therapy Terra Hannah MD [address] [place] [address] Patricio Cadena OT [address] [place] [address] Health Maintenance Due Date Last Done Comments [...]
--- OUTSIDE RECORDS SUMMARY | 2019-08-22 23:50 | XMS REPORT | Summary of Care ---
:1993 Author Organization [facility] Address [address] [place] [address] Care Team Providers Name Role Phone Cyn Terra Primary Care Provider Reason for Referral (Routine) Status Reason Specialty Diagnoses / Referred By Referred To Procedures Contact Contact Authorized Orthopedic Surgery Diagnoses Right wrist pain Keon, Procedures CONSULT ORTHOPAEDIC SURGERY Benitez Reno MD [address] [place], [place] [id number] [place] [phone] (Routine) Status Reason Specialty Diagnoses / Referred By Referred To Procedures Contact Contact New Request Electroneurodiagnostic Diagnoses Right wrist pain Keon, Emg/Ncv Procedures EMGNCV Benitez Reno MD Procedures-Jsa [address] [place] [address] 8.144 [id number] [address] Phone: [place], [place] [phone] [address] Fax: Reason for Visit Reason Comments Results Encounter Details Date Type Department Care Team Description 06/20/2019 Telephone [facility] Benitez Herbert MD Results Rheumatology-[address] [id number] [facility] [address] [phone] [place], [place] [address] [phone] Allergies No Known Allergiesdocumented as of this [...] Office Visit Orthopedic Surgery Dayron Scanlon, DARRIUS [address] [place], [place] [address] 06/26/2019 Ancillary Visit Occupational Therapy Terra Hannah MD [address] [place] [address] Patricio Cadena, [address] [address] Name Type Priority Associated Diagnoses Order S [...] Dates Phone Address Type [employer] A[employer] O [id number] 2016-Present [place] documented as of this encounter
--- OUTSIDE RECORDS SUMMARY | 2019-08-22 23:50 | XMS REPORT | Summary of Care ---
:1993 Author Organization [facility] Address [address] [place] [address] Care Team Providers Name Role Phone Terra Addison Primary Care Provider Reason for Referral Radiology Services (Routine) Status Reason Specialty Diagnoses / Referred By Referred To Procedures Contact Contact New Request Diagnostic Diagnoses Right wrist pain Keon, Radiology Procedures XR HAND 3+ VW BILATERAL Benitez Reno MD [address] [place] [address] Reason for Visit Radiology Services (Routine) Status Reason Specialty Diagnoses / Referred By Referred To Procedures Contact Contact New Request Diagnostic Diagnoses Right wrist pain Keon, Radiology Procedures XR HAND 3+ VW DAIANA Reno MD [address] [place] [address] Encounter Details Date Type Department Care Team Description 06/11/2019 Hospital Encounter [facility] Marylou Herbert, [facility] Radiology [address] [place] [address] [phone] Allergies No Known Allergiesdocumented as of this [...] of 06/12/2019) Active Problems Problem Noted Date 33 weeks [...] Ancillary Visit Occupational Therapy J Carlos Cadena, [address] [address] Name Type Priority Associated Diagnoses Date/Ti me XR HAND 3+ VW BILATERAL IMAGING Routine Right wrist pain 06/11/2019 4:02 PM OPERATING ROOM ASSISTANT Health Maintenance Due Date Last Done Comments [...]
--- OUTSIDE RECORDS SUMMARY | 2019-08-22 23:51 | XMS REPORT | Summary of Care ---
:1995 Author Organization [facility] Address [address] [place] [address] Care Team Providers Name Role Phone Terra Addison Primary Care Provider Reason for Visit Reason Comments Follow-up (Routine) Status Reason Specialty Diagnoses / Referred By Referred To Procedures Contact Contact Authorized Occupational Diagnoses Right wrist pain Chrissy Herbert Procedures CONSULT ADULT OCCUPATIONAL THERAPY AL OCCUPATIONAL THERAPY EVAL LOW COMPLEX 30 MINS AL OCCUPATIONAL THERAPY EVAL MOD COMPLEX 45 MINS AL OCCUPATIONAL THERAPY EVAL HIGH COMPLEX 60 MINS AL THERAPEUTIC EXERCISES Benitez Reno MD AL NEUROMUSC REE DUCAT,1+ AREAS, EA 15 MIN AL MANUAL THER TECH,1+REGIONS,EA 15 MIN AL THERAPEUT ACTVITY DIRECT PT CONTACT EACH 15 MIN AL SELF-CARE/HOME MGMT TRAINING EACH [address] [place], [place] [id number] [place] [address] Encounter Details Date Type Department Care Team Description 06/26/2019 Ancillary Visit [facility] Benjamin Hannah MD [address] [place] [address] Pain of right hand (Primary Dx); Occupational Therapy- Patricio Cadena, OT [address] [place] [address] Pain in both wrists; [place] Decreased activities of rian y living (ADL) [facility] [address] [place] [address] [address] [place] [address] Allergies No Known Allergiesdocumented as of this encounter (statuses as of 06/26/2019) Medications Medication Sig Dispensed Refills Start Date End Date Status naproxen 375 mg Take 1 tablet by 60 tablet 1 06/07/2019 Active tabletIndications: mouth 2 (two) Right wrist pain times daily with meals. acetaminophen-codein 1/2 - 1 tab Every 10 tablet 0 06/07/2019 Active e 300-30 mg 4hrs as needed for tabletIndications: pain or cough Right wrist pain requiring narcotic LO LOESTRIN FE 1 Take 1 tablet by 0 05/24/2019 Active mg-10 mcg (24)/10 mouth daily. mcg (2) per tablet diclofenac 75 mg EC Take 1 tablet by 60 tablet 0 06/25/2019 Active tabletIndications: mouth 2 (two) Chronic pain of times daily with right thumb meals for 30 days. documented as of this encounter (statuses as of 06/26/2019) Active Problems Problem Noted Date Pain of right hand 06/12/2019 Pain in both wrists 06/12/2019 Decreased activities of daily living (ADL) 06/12/2019 33 weeks gestation of 09/08/2015 Premature labor 09/08/2015 30 weeks gestation of 08/13/2015 Premature uterine contractions causing threatened alexys ature labor, 08/13/2015 antepartum Premature uterine contractions causing threatened alexys ature labor 08/13/2015 documented as of this encounter (statuses as of 06/26/2019) Social History Tobacco Use Types Packs/Day Years [...] filedocumented in this encounter Progress Notes Patricio Cadena OT - 06/26/2019 1:00 PM CST Occupational Therapy Treatment Date: June 26, 2019 Subjective: Pt reports that she feels like orthosis is helping, but she is having extra discomfort today, more in the dorsal R distal ulna wrist joint region; noted to be worse with wrist extension butnot as bad when distracting joint during wrist extension. Pain Assessment Pain Assessment: 0-10 Pain Score: 4 Post-Treatment Pain Score: 5 - Moderate pain Pain Location: (R thumb base region and wrist region (volar and dorsal)) Diagnosis: 1. Pain of right hand 2. Pain in both wrists 3. Decreased activities of daily living (ADL) Objective: Outpatient OT Treatment Row Name 06/26/19 1300 General Visit Number 2 Pain Assessment Pain Assessment 0-10 Pain Score 4 Post-Treatment Pain Score 5 - Moderate pain Pain Location R thumb base region and wrist region (volar and dorsal) Orthosis Training Location R thumb Type short opponens Orthosis Orthosis Education Fitting;[place];Wear schedule;Precautions Therapeutic Exercise Therapeutic Exercise Activity 1 AROM R thumb Therapeutic Exercise Activity 2 Trace tennis ball with thumb x 20 reps Therapeutic Exercise Acitivity 3 Gently pulling towel for thumb ROM, per CMC arthritis HEP protocol Therapeutic Exercise Activity 4 Gently squeezing soflty rolled up hand towel x 2 minutes Pt was educated/re-educated at extended length on adaptive strategies, activity modifications and recommendations regarding thumb and wrist pain, including modalities, orthosis wear schedule, avoid repetitive and or forceful grasping/pinching. Pt requested support for R wrist. Provided light wrap of s elf-adhesive wrap to provide gentle support and compression of hand/wrist. Assessment: Pt tolerated session well, appeared to tolerate thumb ROM well, however, she is limited with pain during R wrist extension. Pt performed CMCj athritis HEP, education provided as needed. Pt will benefitfrom activity modifications at home, as it was discussed at extended length this session, and patient reports a lot of the suggestions provided she has not though of and still doing at home. Pt to perform HEP and activity modifications and to reschedule in ~3-4 weeks if needed. Would prefer to continue hand-based orthosis at this time vs immobilizing patient's wrist, but may consider at a later time. Plan: Continue OT PHIL Somers, [facility] Occupational Therapy License #[id number] [facility] Department of Rehabilitation Services M-W-F at [facility] T-Th at [facility] ORMAL PAD FORMER documented in this encounter Plan of Treatment [...]
--- OUTSIDE RECORDS SUMMARY | 2019-08-22 23:51 | XMS REPORT | Summary of Care ---
:1995 Author Organization [facility] Address [address] [place] [address] Care Team Providers Name Role Phone Terra Addison Primary Care Provider Reason for Visit Reason Comments New Patient Hand Pain Right wrist/hand/thumb pain (Routine) Status Reason Specialty Diagnoses / Referred By Referred To Procedures Contact Contact Closed Orthopedic Surgery Diagnoses Right wrist pain Benitez Herbert Procedures CONSULT ORTHOPAEDIC SURGERY MD Rowdy [address] [place], [place] [id number] [place] [address] Encounter Details Date Type Department Care Team Description 06/25/2019 Office Visit [facility] Orthopaedic Dayron Scanlon STerra hronic pain of right Surgery- [place] PAC thumb (Primary Dx) [address], [address] [place] [address] [place] [address] [place], [place] [phone] Allergies No Known Allergiesdocumented as of this encounter (statuses as of 06/25/2019) Medications Medication Sig Dispensed Refills Start Date [...] as of this encounter (statuses as of 06/25/2019) Active Problems Problem Noted Date Pain of right hand 06/12/2019 Pain in both wrists 06/12/2019 Decreased activities of daily living (ADL) 06/12/2019 33 weeks gestation of 09/08/2015 Premature labor 09/08/2015 30 weeks gestation of 08/13/2015 Premature uterine contractions causing threatened alexys ature labor, 08/13/2015 antepartum Premature uterine contractions causing threatened alexys ature labor 08/13/2015 documented as of this encounter (statuses as of 06/25/2019) Social History Tobacco Use Types Packs/Day Years [...] Sign Reading Time Taken Comments Blood Pressure 122/79 06/25/2019 2:16 PM MARKETING AMBASSADOR Pulse 82 06/25/2019 2:16 PM MARKETING AMBASSADOR Temperature - - Respiratory Rate 18 06/25/2019 2:16 PM MARKETING AMBASSADOR Oxygen Saturation - - Inhaled Oxygen Concentration - - Weight 58 kg (127 lb 12.8 oz) 06/25/2019 2:16 PM MARKETING AMBASSADOR Height 151.1 cm (4' 11.5") 06/25/2019 2:16 PM MARKETING AMBASSADOR Body Mass Index 25.38 06/25/2019 2:16 PM MARKETING AMBASSADOR documented in this encounter Progress Notes Dayron Scanlon, PAC - 06/25/2019 2:15 PM CST Abby Uribe is a 23 year old female Chief Complaint Patient presents with New Patient Hand Pain Right wrist/hand/thumb pain Vitals: 06/25/19 1416 BP: 122/79 BP Location: Left arm Patient Position: Sitting BP CUFF SIZE: Adult Medium Pulse: 82 Resp: 18 Weight: 58 kg (127 lb 12.8 oz) Height: 59.5" (151.1 cm) [facility]/pharmacy #[id number] - [place] [address] All Vitals taken, allergies and all medications reviewed, fall risk assessed. Pain level 5/10. ADALID OCAMPO MA 06/25/2019 2:22 PM Abby Uribe is a 23 year old female. Here for right wrist thumb pain, has pain at the base of the right thumb at the volar CMC joint, thepain has been intermittent when it flared up at 6/10 in intensity her wooden frame builder sent her to occupational therapy for a custom CMC joint brace wooden frame builder regarding her through blood tests x-rays at [facility] in [place]. Is not experiencing any numbness or tingling in her hand there is a question as to whether she had carpal tunnel syndrome she intermittently notices weakness Allergies Abby has No Known Allergies. Medications Outpatient Medications Prior to Visit Medication Sig Dispense Refill LO LOESTRIN FE 1 mg-10 mcg (24)/10 mcg (2) per tablet Take 1 tablet by mouth daily. acetaminophen-codeine 300-30 mg tablet 1/2 - 1 tab Every 4hrs as needed for pain or cough requiring narcotic 10 tablet 0 naproxen 375 mg tablet Take 1 tablet by mouth 2 (two) times daily with meals. 60 tablet 1 No facility-administered medications prior to visit. Histories Past Medical History: Diagnosis Date Endometriosis Right wrist pain Past Surgical History: Procedure Laterality Date DILATION AND CURETTAGE (SHX) HYSTERECTOMY TONSILLECTOMY TUBAL LIGATION Social History Socioeconomic History Marital status: Spouse name: Not on file Number of [...] file Gets together: Not on file Attends hoahaoism service: Not on file Active member of [...] file Social History Narrative Not on file Family History Problem Relation Age of Onset Arthritis Mother RA (Rheumatoid arthritis) Maternal Grandmother Arthritis Paternal Grandmother Review of Systems Constitutional: Negative. HENT: Negative. Eyes: Negative. Respiratory: Negative. Breasts: Negative. Cardiovascular: Negative. Gastrointestinal: Negative. Genitourinary: Negative. Musculoskeletal: Positive for joint swelling. Skin: Negative. Neurological: Negative. Psychiatric/Behavioral: Negative. Endocrine: Endocrine negative Vital Signs BP 122/79 (BP Location: Left arm, Patient Position: Sitting, BP CUFF SIZE: Adult Medium) | Pulse 82 | Resp 18 | Ht 59.5" (151.1 cm) | Wt 58 kg (127 lb 12.8 oz) | LMP (LMP Unknown) | BMI 25.38 kg/m Physical Exam Musculoskeletal: Physical Exam Constitutional: oriented to person, place, and time. appears well-developed and well-nourished. HENT: Head: Normocephalic and atraumatic. Right Ear: External ear normal. Left Ear: External ear normal. Eyes: Conjunctivae are normal. Neck: Normal range of motion. No strabismus Neck supple. Cardiovascular: Normal rate and regular rhythm. Pulmonary/Chest: Normal respiratory rate equal chest rise and fall in no apparent distress Abdominal: Abdomen nondistended nontender Neurological: alert and oriented to person, place, and time. No asymmetry Skin: Skin is warm and dry. Psychiatric: normal mood and affect. behavior is normal. Judgment and thought content normal. Nursing note and vitals reviewed. Her pain is in the volar aspect of her carpal metacarpal joint of her right thumb He does not have any thumb triggering or volar mass Assessment/Plan Diagnosis 1. 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 risk of serious and potentially fatal cardiovascular thrombotic events, incl. [place] and stroke; risk may occur early in tx and may incr. w/ duration of use; contraindicated for CABG gwendolyn-operative pain GI Risk NSAIDs incr. risk of serious and potentially fatal GI adverse events incl. bleeding, ulcer, and stomach or intestine perforation; GI events may occur at any time during use and w/o warning sx; elderly pts and pts w/ hx of PUD or GI bleeding at greater risk for serious GI eventsNo medication is withoutrisk anti- inflammatory's inhibit the buffy coat of the stomach which can lead to gastrointestinal bleeding. They can decrease the blood flow to the kidneys. If you're taking an anticoagulant to prevent cardiac disease they can inhibit that anticoagulants ability to protect you. Whether they are prescribed or [id number]. ETING AMBASSADOR documented in this encounter Plan of Treatment Date Type Specialty Care Team Description 06/26/2019 Ancillary Visit Occupational Therapy Terra Hannah MD [address] [place] [phone] Patricio Cadena, [address] [place] [address] Health Maintenance Due Date Last Done Comments [...] filedocumented in this encounter Visit Diagnoses Diagnosis Chronic pain of right thumb - Primary documented in this encounter documented as of this encounter
--- OUTSIDE RECORDS SUMMARY | 2019-08-22 23:51 | XMS REPORT | Summary of Care ---
:1993 Author Organization [facility] Address [address] [place] [address] Care Team Providers Name Role Phone Terra Addison Primary Care Provider Reason for Visit Reason Comments Notification The patient came in on 06/24 for her right thumb. She was prescribed Diclofenac and it isn't helping. She also said that her Left thumb is hurting too. She wa nts to know is there another medication that can be prescribed or what e can do Encounter Details Date Type Department Care Team Description 07/17/2019 Telephone [facility] Orthopaedic Dayron Scanlon N otification ([facility] [place] PAC patient came in on [address], [address] 06/25/2019 for her right [address] [place]. [place] [address] [address] [place], [place] prescribed Diclofenac [phone] [address] and it isn't helping. [phone] She also said that her [phone] Left thumb is h urting (Fax) too. She wants to know is there anothe r medication that can be prescribed or w hat she can do ) Allergies No Known Allergiesdocumented as of this encounter (statuses as of 07/18/2019) Medications Medication Sig Dispensed Refills Start Date End Date Status naproxen 375 mg Take 1 tablet by 60 tablet 1 06/07/2019 Active tabletIndications: Right mouth 2 (two) wrist pain times daily with meals. acetaminophen-codeine 1/2 - 1 tab 10 tablet 0 06/07/2019 Active 300-30 mg Every 4hrs as tabletIndications: Right needed for pain wrist pain or cough requiring narcotic LO LOESTRIN FE 1 mg-10 Take 1 tablet by 0 05/24/2019 Active mcg (24)/10 mcg (2) per mouth daily. tablet diclofenac 75 mg EC Take 1 tablet by 60 tablet 0 06/25/2019 Active tabletIndications: mouth 2 (two) 0 Chronic pain of right times daily with thumb meals for 30 days. methylPREDNISolone Take by mouth 21 Each 0 07/18/2019 Active (MEDROL, PAOLO,) 4 mg SEE-INSTRUCTIONS tablets . follow package directions documented as of this encounter (statuses as of 07/18/2019) Active Problems Problem Noted Date Pain of right hand 06/12/2019 Pain in both wrists 06/12/2019 Decreased activities of daily living (ADL) 06/12/2019 33 weeks gestation of 09/08/2015 Premature labor 09/08/2015 30 weeks gestation of 08/13/2015 Premature uterine contractions causing threatened alexys ature labor, 08/13/2015 antepartum Premature uterine contractions causing threatened alexys ature labor 08/13/2015 documented as of this encounter (statuses as of 07/18/2019) Social History Tobacco Use Types Packs/Day Years [...] Results Not on filedocumented in this encounter Insurance Payer Benefit Plan / Group Subscriber ID Effective Dates Phone Address Type AETNÉSTOR AETNA O [id number] 2016-Present [place] documented as of this encounter
--- OUTSIDE RECORDS SUMMARY | 2019-08-22 23:51 | XMS REPORT | Summary of Care ---
:1993 Author Organization [facility] Address [address] [place] [address] Care Team Providers Name Role Phone Terra Addison Primary Care Provider Reason for Visit Reason Comments New Patient Hand Pain Right wrist/hand/thumb pain (Routine) Status Reason Specialty Diagnoses / Referred By Referred To Procedures Contact Contact Closed Orthopedic Surgery Diagnoses Right wrist pain Benitez Herbert Procedures CONSULT ORTHOPAEDIC SURGERY MD Rowdy [address] [place], [place] [address] [place] [address] Encounter Details Date Type Department Care Team Description 06/25/2019 Office Visit [facility] Orthopaedic Dayron Scanlon STerra hronic pain of right Surgery- [place] PAC thumb (Primary Dx) [address], [address] [place] [place] [address] [place], [place] [phone] Allergies No Known Allergiesdocumented as of this [...] Comments Blood Pressure 122/79 06/25/2019 2:16 PM HAND SPRING REPAIRER Pulse 82 06/25/2019 2:16 PM HAND SPRING REPAIRER Temperature - - Respiratory Rate 18 06/25/2019 2:16 PM HAND SPRING REPAIRER Oxygen Saturation - - Inhaled Oxygen Concentration - - Weight 58 kg (127 lb 12.8 oz) 06/25/2019 2:16 PM HAND SPRING REPAIRER Height 151.1 cm (4' 11.5") 06/25/2019 2:16 PM HAND SPRING REPAIRER Body Mass Index 25.38 06/25/2019 2:16 PM HAND SPRING REPAIRER documented in this encounter Progress Notes Dayron [...] lb 12.8 oz) Height: 59.5" (151.1 cm) [facility]/pharmacy #[id number] - [place] [address] All Vitals taken, allergies and all medications reviewed, fall risk assessed. Pain level 5/10. ADALID OCAMPO MA 06/25/2019 2:22 PM Abby Uribe is a 23 year old female. Here for right wrist thumb pain, has pain at the base of the right thumb at the volar CMC joint, thepain has been intermittent when it flared up at 6/10 in intensity her collar runner sent her to occupational therapy for a custom CMC joint brace collar runner regarding her through blood tests x-rays at [facility] in [place]. Is not experiencing any numbness or tingling [...] file Gets together: Not on file Attends cheondoism service: Not on file Active member of [...] and potentially fatal cardiovascular thrombotic events, incl. [place] and stroke; risk may occur early in [...] protect you. Whether they are prescribed or [id number]. SPRING REPAIRER documented in this encounter Plan of Treatment Date Type Specialty Care Team Description 06/26/2019 Ancillary Visit Occupational Therapy Terra Hannah MD [address] [place] [phone] Patricio Cadena, [address] [place] [address] Health Maintenance Due Date Last Done Comments [...]
--- OUTSIDE RECORDS SUMMARY | 2019-08-22 23:51 | XMS REPORT | Summary of Care ---
:1993 Author Organization [facility] Address [address] [place] [address] Care Team Providers Name Role Phone Terra Addison Primary Care Provider Reason for Visit Reason Comments Refill Request Encounter Details Date Type Department Care Team Description 07/19/2019 Refill [facility] Orthopaedic Rowdy Scanlon, PAC Refill Request Surgery- [place] [address], [address] [place] [address] [address] [place] [address] [phone] Allergies No Known Allergiesdocumented as of this encounter (statuses as of 07/19/2019) Medications Medication Sig Dispensed Refills Start End Date Status Date naproxen 375 mg Take 1 tablet 60 tablet 1 Active tabletIndications: by mouth 2 0 Right wrist pain (two) times daily with meals. acetaminophen-codeine 1/2 - 1 tab 10 tablet 0 Active 300-30 mg Every 4hrs as 0 tabletIndications: needed for Right wrist pain pain or cough requiring narcotic LO LOESTRIN FE 1 mg-10 Take 1 tablet 0 Active mcg (24)/10 mcg (2) per by mouth 0 tablet daily. methylPREDNISolone Take by mouth 21 Each 0 Active (MEDROL, PAOLO,) 4 mg SEE-INSTRUCTIO 0 tablets NS. follow package directions DICLOFENAC 75 mg EC TAKE 1 TABLET 60 tablet 0 Active tabletIndications: BY MOUTH 2 0 20 Chronic pain of right (TWO) TIMES thumb DAILY WITH MEALS FOR 30 DAYS. diclofenac 75 mg EC Take 1 tablet 60 tablet 0 Discontinued tabletIndications: by mouth 2 0 20 Chronic pain of right (two) times thumb daily with meals for 30 days. documented as of this encounter (statuses as of 07/19/2019) Active Problems Problem Noted Date Pain of right hand 06/12/2019 Pain in both wrists 06/12/2019 Decreased activities of daily living (ADL) 06/12/2019 33 weeks gestation of 09/08/2015 Premature labor 09/08/2015 30 weeks gestation of 08/13/2015 Premature uterine contractions causing threatened alexys ature labor, 08/13/2015 antepartum Premature uterine contractions causing threatened alexys ature labor 08/13/2015 documented as of this encounter (statuses as of 07/19/2019) Social History Tobacco Use Types Packs/Day Years [...] Diagnoses Diagnosis Chronic pain of right thumb documented in this encounter Insurance Payer Benefit Plan / Group Subscriber ID Effective Dates Phone Address Type AETNA AETNA O [id number] 2016-Present [place] documented as of this encounter
--- NOTE | 2019-08-23 00:23 | ER ---
Nurse's Notes [facility] Name: Abby Uribe Age: 23 yrs Sex: Female : 1995 Arrival Date: 08/22/2019 Time: 23:49 Bed 7 Private MD: Diagnosis: Edema, unspecified Presentation: 08/21 23:59 Chief complaint: Patient states: Right arm swelling since Tuesday. States she has minor ll1 swelling after drinking ETOH that is high in sodium. Drank Tuesday night. Noticed bilateral upper extremity swelling Tuesday. Swelling continues only in right arm, left has gotten better. Coronavirus screen: Proceed with normal triage. Patient denies a cough. Patient denies shortness of breath or difficulty breathing. Patient denies measured and/or subjective temperature greater than 100.4F prior to today's visit. Patient denies travel on a cruise ship or to a country the [facility] currently lists as an affected area. Patient denies contact with known and/or suspected case of COVID-19. Ebola Screen: Patient denies travel to an Ebola-affected area in the 21 days before illness onset. Initial Sepsis Screen: Does the patient meet any 2 criteria? No. Patient's initial sepsis screen is negative. Does the patient have a suspected source of infection? No. Patient's initial sepsis screen is negative. Risk Assessment: Do you want to hurt yourself or someone else? Patient reports no desire to harm self or others. Onset of symptoms was August 20, 2019. 23:59 Method Of Arrival: Ambulatory ll1 23:59 Acuity: PRABHJOT 4 ll1 Historical: - Allergies: 08/22 00:03 NKDA; ll1 - PMHx: 00:03 Endometrosis; ll1 - PSHx: 00:03 Tonsillectomy; Ear surgery; Tubal ligation; Adenoids; Hysterectomy; endoscopic ll1 laparotomy; - Immunization history:: Adult Immunizations up to date. - Social history:: Smoking status: Patient denies any tobacco usage or history of. Patient/guardian denies using alcohol, street drugs, tobacco products. Screenin:28 Abuse screen: Denies threats or abuse. Nutritional screening: No deficits noted. ea Tuberculosis screening: No symptoms or risk factors identified. Fall Risk None identified. Assessment: 00:27 General: Appears in no apparent distress. Behavior is calm, cooperative, appropriate ea for age. Pain: Complains of pain in right arm. Neuro: Level of Consciousness is awake, alert, obeys commands, Oriented to person, place, time. Respiratory: Airway is patent Respiratory effort is even, unlabored, Respiratory pattern is regular, symmetrical. Derm: Skin is pink, warm \T\ dry. swelling to right arm. 01:02 Reassessment: Patient appears in no apparent distress at this time. Patient is alert, lp1 oriented x 3, equal unlabored respirations, skin warm/dry/pink. Patient states demonstrating understanding of follow up per Provider's instructions. Vital Signs: 08/21 23:59 BP 136 / 96; Pulse 81; Resp 18; Temp 98.7; Pulse Ox 100% ; Pain 2/10; ll1 Yanni Coma Score: 08/22 00:04 Eye Response: spontaneous(4). Verbal Response: oriented(5). Motor Response: obeys snw commands(6). Total: 15. ED Course: 08/21 23:49 Patient arrived in ED. cl3 23:51 Emily Colon FNP-C is [facility]. snw 23:51 Gregg Joshi MD is Attending Physician. snw 23:51 Mark Hussein, RN is Primary Nurse. jb4 23:58 Primary Nurse role handed off by Mark Hussein, RN ea 23:58 Marce Castillo, TIM is Primary Nurse. ea 08/22 00:01 Triage completed. ll1 00:03 Arm band placed on Patient placed in an exam room, on a stretcher. ll1 00:28 Patient has correct armband on for positive identification. Bed in low position. Call ea light in reach. Side rails up X2. 01:02 No provider procedures requiring assistance completed. Patient did not have IV access lp1 during this emergency room visit. Administered Medications: 01:01 Drug: Aspirin 81 mg Route: PO; lp1 01:01 Follow up: Response: Medication administered at discharge. lp1 Outcome: 00:21 Discharge ordered by . snw 01:04 Discharged to home ambulatory. lp1 01:04 Condition: good 01:04 Discharge instructions given to patient, Instructed on discharge instructions, follow up and referral plans. Demonstrated understanding of instructions, follow-up care. 01:05 Patient left the ED. lp1 Signatures: Emily Colon, GANG RIPSAW OPERATOR-C GANG RIPSAW OPERATOR-Csnw Luz Marina Lombardo, RN RN lp1 Mark Hussein, RN RN jb4 Marce Castillo, RN RN María Harper3 Nilsa Juarez RN RN ll1
--- NOTE | 2019-08-23 00:25 | EDPHYS ---
Physician Documentation [facility] Name: Abby Uribe Age: 23 yrs Sex: Female : 1995 Arrival Date: 08/22/2019 Time: 23:49 Bed 7 Private MD: ED Physician Gregg Joshi HPI: 08/21 23:59 This 23 yrs old Female presents to ER via Unassigned with complaints of Arm snw Pain. 23:59 The patient or guardian complains of swelling. The complaints affect the right tricep, snw right wrist and palmar aspect of right forearm. Context: The problem was sustained at home, resulted from unknown cause. Onset: The symptoms/episode began/occurred gradually, 2 day(s) ago, and became persistent. Treatment prior to arrival includes: no previous treatment. Modifying factors: the symptoms are aggravated by squeezing area. Associated signs and symptoms: The patient has no apparent associated signs or symptoms. Severity of symptoms: At their worst the symptoms were very mild. The patient has experienced similar episodes in the past, pt states she swells a little when she consumes ETOH. Mild ETOH consumption over the weekend. Bilateral arms with swelling afterward. Left arm went down but right remained a little swollen with some tingling sensation. The patient has not recently seen a physician. no fever, erythema, travel, tachycardia, clotting hx, . Historical: - Allergies: 08/22 00:03 NKDA; ll1 - PMHx: 00:03 Endometrosis; ll1 - PSHx: 00:03 Tonsillectomy; Ear surgery; Tubal ligation; Adenoids; Hysterectomy; endoscopic ll1 laparotomy; - Immunization history:: Adult Immunizations up to date. - Social history:: Smoking status: Patient denies any tobacco usage or history of. Patient/guardian denies using alcohol, street drugs, tobacco products. ROS: 08/21 23:59 Constitutional: Negative for fever, chills, and weight loss, Eyes: Negative for injury, snw pain, redness, and discharge, ENT: Negative for injury, pain, and discharge, Neck: Negative for injury, pain, and swelling, Cardiovascular: Negative for chest pain, palpitations, and edema, Respiratory: Negative for shortness of breath, cough, wheezing, and pleuritic chest pain, Abdomen/GI: Negative for abdominal pain, nausea, vomiting, diarrhea, and constipation, Back: Negative for injury and pain, : Negative for injury, bleeding, discharge, and swelling, Skin: Negative for injury, rash, and discoloration, Neuro: Negative for headache, weakness, numbness, tingling, and seizure. MS/extremity: Positive for swelling, tenderness, of the right arm. Exam: 23:57 Constitutional: This is a well developed, well nourished patient who is awake, alert, snw and in no acute distress. Head/Face: Normocephalic, atraumatic. Eyes: Pupils equal round and reactive to light, extra-ocular motions intact. Lids and lashes normal. Conjunctiva and sclera are non-icteric and not injected. Cornea within normal limits. Periorbital areas with no swelling, redness, or edema. ENT: Nares patent. No nasal discharge, no septal abnormalities noted. Tympanic membranes are normal and external auditory canals are clear. Oropharynx with no redness, swelling, or masses, exudates, or evidence of obstruction, uvula midline. Mucous membranes moist. Neck: Trachea midline, no thyromegaly or masses palpated, and no cervical lymphadenopathy. Supple, full range of motion without nuchal rigidity, or vertebral point tenderness. No Meningismus. Chest/axilla: Normal chest wall appearance and motion. Nontender with no deformity. No lesions are appreciated. Cardiovascular: Regular rate and rhythm with a normal S1 and S2. No gallops, murmurs, or rubs. Normal PMI, no JVD. No pulse deficits. Respiratory: Lungs have equal breath sounds bilaterally, clear to auscultation and percussion. No rales, rhonchi or wheezes noted. No increased work of breathing, no retractions or nasal flaring. Abdomen/GI: Soft, non-tender, with normal bowel sounds. No distension or tympany. No guarding or rebound. No evidence of tenderness throughout. Back: No spinal tenderness. No costovertebral tenderness. Full range of motion. Skin: Warm, dry with normal turgor. Normal color with no rashes, no lesions, and no evidence of cellulitis. Neuro: Awake and alert, GCS 15, oriented to person, place, time, and situation. Cranial nerves II-XII grossly intact. Motor strength 5/5 in all extremities. Sensory grossly intact. Cerebellar exam normal. Normal gait. Psych: Awake, alert, with orientation to person, place and time. Behavior, mood, and affect are within normal limits. 23:57 Musculoskeletal/extremity: Extremities: grossly normal except: noted in the right arm: swelling, tenderness, ROM: intact in all extremities, Circulation is intact in all extremities. Tingling of extremity. Compartment Syndrome exam of affected extremity: is normal. Vital Signs: 23:59 BP 136 / 96; Pulse 81; Resp 18; Temp 98.7; Pulse Ox 100% ; Pain 2/10; ll1 Emma Coma Score: 08/22 00:04 Eye Response: spontaneous(4). Verbal Response: oriented(5). Motor Response: obeys snw commands(6). Total: 15. MDM: 00:03 Patient medically screened. snw 00:04 Data reviewed: vital signs, nurses notes. Data interpreted: Pulse oximetry: on room air snw is 100 %. Interpretation: normal. Counseling: I had a detailed discussion with the patient and/or guardian regarding: the historical points, exam findings, and any diagnostic results supporting the discharge/admit diagnosis, lab results, to return to the emergency department if symptoms worsen or persist or if there are any questions or concerns that arise at home. 08/21 23:57 Order name: Urine Culture [facility] 08/21 23:57 Order name: Urine Microscopic Only; Complete Time: 00:36 snw 08/22 00:11 Order name: Urine Dipstick--Ancillary (enter results) [facility] 08/22 00:11 Order name: Urine --Ancillary (enter results) [facility] 08/22 00:29 Order name: Urine --Ancillary [facility] 08/22 00:29 Order name: Urine Dipstick-Ancillary [facility] 08/21 23:57 Order name: Urine Dipstick-Ancillary (obtain specimen); Complete Time: 00:22 snw Administered Medications: 01:01 Drug: Aspirin 81 mg Route: PO; lp1 01:01 Follow up: Response: Medication administered at discharge. lp1 Disposition: 06:41 Co-signature as Attending Physician, Gregg Joshi MD I agree with the assessment and 4 plan of care. Disposition: 08/23/19 00:21 Discharged to Home. Impression: Edema, unspecified. - Condition is Stable. - Discharge Instructions: Edema, Aspirin and Your Heart, Rehydration, Adult. - Medication Reconciliation Form, Thank You Letter, Antibiotic Education, Prescription Opioid Use form. - Follow up: Emergency Department; When: As needed; Reason: Worsening of condition. Follow up: Private Physician; When: 1 - 2 days; Reason: Recheck today's complaints, Continuance of care, Re-evaluation by your physician. Signatures: Dispatcher [employer] EDMS Emily Colon, ROSALIE-C MANAGER CLINICAL RESEARCH-Luz Marina Morgan, RN RN lp1 Gregg Joshi MD MD tw4 Nilsa Juarez RN RN ll1 Corrections: (The following items were deleted from the chart) 00:03 08/21 23:57 Urine Test ordered. chip saunders 08/22 01:05 00:21 08/23/2019 00:21 Discharged to Home. Impression: Edema, unspecified. Condition is lp1 Stable. Forms are Medication Reconciliation Form, Thank You Letter, Antibiotic Education, Prescription Opioid Use. Follow up: Emergency Department; When: As needed; Reason: Worsening of condition. Follow up: Private Physician; When: 1 - 2 days; Reason: Recheck today's complaints, Continuance of care, Re-evaluation by your physician. chip
[2019-08-23 00:29] LABS: Urine Culture Reflex Order NOT NEEDED
[2019-08-23 00:29] LABS: Urine Blood NEGATIVE (NEG); Urine Glucose NEGATIVE (NEG); Urine Protein NEGATIVE (NEG)
[2019-08-23 00:30] LABS: Urine Bacteria <20 /HPF (<20); Urine RBC NONE SEEN /HPF (NONE SEEN)
[2019-08-23] MEDS ORDERED: ASPIRIN EC 81 MG TAB PO ONE (00:54)
== END 2019-08-23 01:05 | disposition home or self-care (01) ==
LOC: ER 23:46
DX: R60.9 Edema, unspecified (principal)
CPT/HCPCS: 81003; 81015; 81025; 87086; 87088; 99283